=== PATIENT | male | born 1980 ===

== ENCOUNTER 2017-04-15 10:38 | Inpatient (IN) | payer MEDICAID, OTHER ==
[2017-04-15 11:37] LABS: BASO # 0.1 K/uL (0.0-0.2); BASO % 0.3 % (0.0-2.0); EOS % 0.1 % (0.0-4.0); LYMPH # 1.8 K/uL (1.0-4.3); LYMPH % 8.4 % (20.0-40.0); MEAN CELL VOLUME 74.8 fL (80.0-94.0); MEAN CORPUSCULAR HEMOGLOBIN 24.3 pg (27.0-31.0); MEAN CORPUSCULAR HGB CONC 32.4 g/dL (33.0-37.0); MEAN PLATELET VOLUME 6.8 fL (7.2-11.7); MONO # 1.5 K/uL (0.0-0.8); MONO % 7.1 % (0.0-10.0); PLATELET COUNT 443 K/uL (130-400)
[2017-04-15 11:47] LABS: CHLORIDE 101 mmol/L (98-107); SODIUM 137 mmol/L (132-148)
[2017-04-15 11:48] LABS: POTASSIUM 4.5 mmol/L (3.6-5.2)
[2017-04-15 11:50] LABS: ALB/GLOB RATIO 0.9 (1.0-2.1); ALKALINE PHOSPHATASE 71 U/L (38-126); ALT/SGPT 38 U/L (21-72); AST/SGOT 21 U/L (17-59); BILIRUBIN,TOTAL 0.8 mg/dL (0.2-1.3); BLOOD UREA NITROGEN 13 mg/dL (9-20); CALCIUM 8.9 mg/dl (8.6-10.4); CARBON DIOXIDE 26 mmol/L (22-30); GFR AFRICAN-AMERICAN > 60; GLUCOSE,RANDOM 94 mg/dL (75-110); TOTAL PROTEIN 7.7 g/dL (6.3-8.3)
[2017-04-15 11:51] LABS: ALCOHOL SERUM < 10 mg/dl (0-10)
[2017-04-15 11:56] LABS: RBC URINE < 1 /hpf (0-3); URINE BACTERIA OCC (<OCC); URINE BILIRUBIN NEGATIVE (NEGATIVE); URINE BLOOD NEGATIVE (NEGATIVE); URINE COLOR Yellow (YELLOW); URINE GLUCOSE (UA) NORMAL (Normal); URINE KETONE NEGATIVE (NEGATIVE); URINE LEUKOCYTE ESTERASE TRACE Leu/uL (Negative); URINE PROTEIN NEGATIVE (NEGATIVE)
[2017-04-15 11:57] LABS: NEUTROPHIL 84 % (50-75); TOTAL CELLS COUNTED 100
[2017-04-15 12:09] LABS: WBC URINE 25 /hpf (0-5)
--- NOTE | 2017-04-15 12:27 | C.PDOC ---
History Of Present Illness 36 y/o male presents to ED for evaluation of depression with suicidal ideation- has plan to hang himself. Pt also complains of right testicular pain and swelling for the last several days. Pt denies having unprotected sex, penile discharge or rash, fever, abdominal pain, injuries/trauma. Time Seen by Provider: 04/15/17 11:01 Chief Complaint (Nursing): Psychiatric Evaluation History Per: Patient History/Exam Limitations: no limitations Onset/Duration Of Symptoms: Days Current Symptoms Are (Timing): Still Present Modifying Factor(s): None Severity: Moderate Associated Symptoms: Depression, Suicidal Thoughts, Suicidal Plan Involuntary Hold By: Emergency Physician Additional History Per: Patient Past Medical History Reviewed: Historical Data, Nursing Documentation, Vital Signs Vital Signs: Last Vital Signs Temp 98.3 F 04/15/17 15:35 Pulse 74 04/15/17 15:35 Resp 17 04/15/17 16:00 BP 104/66 04/15/17 15:35 Pulse Ox 99 04/15/17 15:27 - Medical History PMH: Bipolar Disorder, Schizophrenia Family History: States: No Known Family Hx - Social History Hx Alcohol Use: Yes Hx Substance Use: Yes (last yesterday) - Immunization History Hx Tetanus Toxoid Vaccination: No Hx Influenza Vaccination: No Hx Pneumococcal Vaccination: No Review Of Systems Except As Marked, All Systems Reviewed And Found Negative. Constitutional: Negative for: Fever, Chills Cardiovascular: Negative for: Chest Pain, Palpitations Respiratory: Negative for: Shortness of Breath Gastrointestinal: Negative for: Nausea, Vomiting, Abdominal Pain Genitourinary: Positive for: Other (testicular pain and swelling). Negative for : Dysuria, Frequency, Hematuria, Penile Discharge, Rash, Penile Pain Skin: Negative for: Rash Neurological: Negative for: Headache, Dizziness Psych: Positive for: Depression, Suicidal ideation Physical Exam - Physical Exam Appears: Well, Non-toxic, No Acute Distress, Other (flat affect) Skin: Warm, Dry, No Rash Head: Normacephalic Eye(s): bilateral: Normal Inspection Oral Mucosa: Moist Neck: Supple Cardiovascular: Rhythm Regular Respiratory: Normal Breath Sounds, No Rales, No Rhonchi, No Wheezing Gastrointestinal/Abdominal: Normal Exam, Bowel Sounds, Soft, No Tenderness Back: No CVA Tenderness Male Genital: Testicular Tenderness (erythema, warmth, and tenderness to palpation of right testicle), Testicular Swelling (right), No Inguinal Swelling , No Other (no penile lesions or discharge) Extremity: Normal ROM Neurological/Psych: Oriented x3 ED Course And Treatment - Laboratory Results Result Diagrams: 04/15/17 15:07 04/15/17 11:34 O2 Sat by Pulse Oximetry: 100 (on RA) Pulse Ox Interpretation: Normal Progress Note: Blood work, UA, CXR, testicular ultrasoud ordered and reviewed. Patient given IV NS bolus, IV toradol for pain. US shows epididymitis/orchitis without abscess. Discussed patient with [employer] consultant urologist Dr. Sanchez, he recommends PO antibiotics (Ciprofloxacin) without further intervention at this time. Rocephin IM and Azithromycin PO given in ED to cover for possible chlamydia/gonorrhea. Recommend Ciprofloxacin 500mg PO BID x 10 days and then follow up with urology. 3:00pm- Patient medically cleared. 3:11pm- Patient accepted for psychiatric admission by Dr. Banks. Urology consult entered. - Physician Consult Information Physician Contacted: Marcel Sanchez Disposition - Disposition Disposition: HOSPITALIZED Disposition Time: 13:11 Condition: STABLE - Clinical Impression Clinical Impression: Depression, Epididymitis, Orchitis - Scribe Statement The provider has reviewed the documentation as recorded by the Scribe Inez Fritz All medical record entries made by the Scribe were at my direction and personally dictated by me. I have reviewed the chart and agree that the record accurately reflects my personal performance of the history, physical exam, medical decision making, and the department course for this patient. I have also personally directed, reviewed, and agree with the discharge instructions and disposition. Decision To Admit - Pt Status Changed To: Hospital Disposition Of: Inpatient - Admit Certification Admit to Inpatient:: After my assessment, the patient will require hospitalization for at least two midnights. This is because of the severity of symptoms shown, intensity of services needed, and/or the medical risk in this patient being treated as an outpatient. - InPatient: Physician Admission Certification: I certify that this patient requires 2 or more midnights of care for the following reason:: see notes - . Bed Request Type: Psychiatry Admitting Physician: Carlo Banks Patient Diagnosis: Depression, Epididymitis, Orchitis
[2017-04-15] MEDS ORDERED: Sodium Chloride 0.9% 1,000 ML IV ONE (12:36)
--- NOTE | 2017-04-15 12:42 | RAD ---
HISTORY: ELEVATED WHITE COUNT COMPARISON: None available. TECHNIQUE: Chest PA and lateral FINDINGS: LUNGS: No focal consolidation. Please note that chest x-ray has limited sensitivity for the detection of pulmonary masses. PLEURA: No significant pleural effusion identified. No definite pneumothorax . CARDIOVASCULAR: The cardiomediastinal silhouette appears within normal limits of size. OSSEOUS STRUCTURES: No acute osseous abnormality identified. VISUALIZED UPPER ABDOMEN: Unremarkable. OTHER FINDINGS: None. IMPRESSION: No focal consolidation, significant pleural effusion, or definite pneumothorax identified.
[2017-04-15] MEDS ORDERED: Sodium Chloride 0.9% 1,000 ML ONE (13:34)
--- NOTE | 2017-04-15 14:19 | US ---
HISTORY: TESTICULAR PAIN, SWELLING TECHNIQUE: Realtime sonography through the scrotum with color and doppler flow. COMPARISON: None Available. FINDINGS: RIGHT TESTICLE: Measures 4.9 x 3.0 x 3 point sick cm. Normal echotexture. Diffuse hypervascularity throughout the right testicle and the inferred grossly abnormal epididymis RIGHT EPIDIDYMIS: The right epididymis is grossly abnormal - especially the body and tail. These epididymal parts are diffusely heterogeneous and diffusely swollen/enlarged. Estimated right epididymal tail portion is 2.2 x 2.4 x 3.4 cm. A near phlegmonous like process involving this portion of the epididymis is suspect. Right epididymal head is more normal-appearing in its echogenicity measuring 1.1 x 2.1 by 2.4 cm. LEFT TESTICLE: Measures 4.0 x 2.0 x 3.4 cm. Normal echotexture and flow. LEFT EPIDIDYMIS: Epididymal head measures 0.8 x 1.3 x 1.2 cm. Grossly unremarkable head appearance with normal flow. In contrast to the grossly abnormal right epididymal tail, the inferior left epididymal tail region on these images- series 1, image 60 suggests 2 fairly similarly sized rounded foci. 1 is homogeneous and the other suggest a cluster of microcysts within it. Each of the left epididymal tail component is approximately 1 cm in size. HYDROCELE: A large markedly septated right hydrocele is present. A minimal non complicated appearing left hydrocele suggested VARICOCELE: None. OTHER FINDINGS: Few scrotal wall thickening especially the right scrotal sac IMPRESSION: Grossly abnormal right epididymal body and tail -diffuse phlegmonous right epididymitis with right complicated hydrocele and asymmetrical right scrotal skin thickening/edema present. No intratesticular abscess. Diffuse increased vascularity throughout the right testicle is consistent with a hyperemic right orchitis. No intratesticular abscess noted. Left epididymal tail mildly complex anatomy much milder for/less extensive focal epididymitis here is not excluded. Developmental variant of clustered epididymal tail microcysts is another. Close clinical follow-up with the treatment is recommended
[2017-04-15] MEDS ORDERED: cefTRIAXone (Rocephin) 250 mg Inj IM STA (14:45)
[2017-04-15 15:13] LABS: BASO % 0.2 % (0.0-2.0); EOS # 0.1 K/uL (0.0-0.7); EOS % 0.3 % (0.0-4.0); HEMATOCRIT 31.5 % (35.0-51.0); LYMPH # 2.4 K/uL (1.0-4.3); MEAN CELL VOLUME 74.8 fL (80.0-94.0); MEAN CORPUSCULAR HEMOGLOBIN 24.1 pg (27.0-31.0); MEAN CORPUSCULAR HGB CONC 32.3 g/dL (33.0-37.0); MEAN PLATELET VOLUME 6.8 fL (7.2-11.7); MONO # 1.1 K/uL (0.0-0.8); MONO % 6.1 % (0.0-10.0); RED CELL DISTRIBUTION WIDTH 14.8 % (11.5-14.5); WHITE BLOOD COUNT 18.5 K/uL (4.8-10.8)
--- NOTE | 2017-04-15 16:36 | PCM.BM ---
<Alexia Cavazosanta - Last Filed: 04/15/17 16:34> Treatment Plan Problems - Problems identified on initial assessmt Depression Date Initiated: 04/15/17 Time Initiated: 16:35 Assessment reference: NA Status: Active Suicidal Ideation Date Initiated: 04/15/17 Time Initiated: 16:35 Assessment reference: NA Status: Monitor Treatment assets and liabiliti Patient Assests: adapts well, cooperative, ADL independent, negotiates basic needs Patient Liabilities: physical pain, substance abuse - Milieu Protocol Maintain good personal hygiene: daily Encourage regular showers, daily Remind patient to perform daily oral care Maintain personal safety: every shift Educate patient to report safety concerns to staff, every shift Monitor environment for contraband/sharps Medication safety: Monitor for expected outcome, potential side effects: every shift, Assess barriers to learning: every shift, Assess readiness for medication education: every shift <Gisele Linares - Last Filed: 04/16/17 10:41> Family Contact Family involvement: Family/SO is involved Family contact: Patient declines to allow family contact at present - Goals for Treatment Patient goals for treatment: "I want to go back to [place]." Discharge/Continuing Care - Education Needs Education Needs: Patient Medication, Patient Coping Skills, Patient Community resources - Discharge Discharge Criteria: Tolerates medication w/o severe side effects, Free of Suicidal thoughts, No longer exhibiting s/s of withdrawal, Reduction of target symptoms Discharge to:: Home - Treatment Team Participation Discussed with Family/SO: No Was Patient/Family/SO present at Treatment Team Meeting: Yes <Carlo Banks - Last Filed: 04/16/17 10:49> - Diagnosis (1) Schizoaffective disorder, bipolar type Status: Acute Interventions: 04/16/17 10:48 * Assess/adjust medications daily and /or as needed * See patient on an individual basis 7x/week to assess status of hallucinations * Discuss risks, benefits, side effects and alternatives of medications * (2) Opioid use disorder, severe, dependence Status: Acute Interventions: 04/16/17 10:48 * Assess 7x/week regarding severity of withdrawal * Educate regarding risks, benefits, side effects and alternatives of medications * Use Motivational Interviewing for abstinence * Use CBT for relapse prevention * Medication management for withdrawal symptoms * Encourage medication assisted treatment *
--- NOTE | 2017-04-16 09:55 | PCM.PSYCH ---
Initial Psychiatric Evaluation - Initial Psychiatric Evaluation Type of Admission: Voluntary Legal Status: Capacity Chief Complaint (in patient's own words): I started hearing voices.' History of Present Illness and Precipitating Events: Patient is a 36 year old male with history of schizoaffective disorder and history of abusing heroin and cocaine and drinking was brought to ED by his mother as patient became increasingly depressed and made a suicidal ideation with a plan to hang himself. As per the patient he has history of schizophrenia paranoid type continuous. He was last discharged from the hospital in [place] almost 2 years ago. As per the patient he saw a psychiatrist in [place] almost a year ago. Since then he is been noncompliant with his medications. Patient reports a long history of abusing drugs. Patient reports he is using 15 bags of heroin and $200 of cocaine IV daily. Patient started using when he was 18 and has been using both heroin and cocaine for years. Patient last used yesterday. He reports drinking almost a liter of vodka 2 days ago. Patient reports that he started hearing voices telling him to harm himself. Yesterday patient became so depressed that he was in the process of attempting suicide by hanging when his mother walked in and intervened and escorted him to the hospital to get help. Patient reports depressed mood, feelings of hopelessness and helplessness, poor sleep and poor appetite. He also reports auditory hallucinations telling him to kill himself and persecutory delusions that he is being followed. He also reports at times anxiety and irritability but denies any panic attacks. Past medical history None reported Current Medications: Active Medications Generic Name Dose Route Start Last Admin Trade Name Freq PRN Reason Stop Dose Admin Al Hydrox/Mg Hydrox/Simethicone 30 ml 04/15/17 15:28 Maalox 30 Ml PO TID PRN Indigestion / Heartburn Ciprofloxacin 500 mg 04/15/17 18:00 04/16/17 09:04 Cipro PO 500 mg BID FESTUS Administration Clonidine HCl 0.1 mg 04/15/17 15:28 Catapres PO Q8 PRN COWS Score More or Equal to 5 Hydroxyzine HCl 25 mg 04/15/17 15:29 04/16/17 09:05 Atarax PO 25 mg Q6 PRN Administration Anxiety Loperamide HCl 2 mg 09/21/17 15:28 Imodium PO Q8 PRN Diarrhea Methadone HCl 10 mg 04/17/17 10:00 Methadone PO 04/19/17 09:59 DAILY FESTUS Taper Ondansetron HCl 4 mg 04/15/17 15:28 Zofran Tab PO Q8 PRN Nausea/Vomiting Pneumococcal Polyvalent Vaccine 0.5 ml 04/18/17 10:00 Pneumovax 23 Vaccine IM 04/18/17 10:01 .ONCE ONE Pseudoephedrine HCl 60 mg 04/15/17 15:28 Sudafed Tab PO QID PRN Nasal/Sinus Congestion Trazodone HCl 50 mg 04/15/17 22:00 04/15/17 21:12 Desyrel PO 50 mg HS FESTUS Administration Past Psychiatric History - Past Psychiatric History Previous Treatment History: Inpatient Pertinent Medical Hx (Current Medical&Sleep Prob, Allergies): Allergies Allergy/AdvReac Type Severity Reaction Status Date / Time No Known Allergies Allergy Verified 04/15/17 10:51 No Known Home Med 04/15/17 Review of Systems - Review of Systems All systems: reviewed and no additional remarkable complaints except - Psychiatric Psychiatric: Anxiety, Auditory Hallucinations, Hopelessness, Irritability, Paranoia, Suicidal Ideation Mental Status Examination - Personal Presentation Personal Presentation: Looks stated age - Affect Affect: Constricted, Depressed - Motor Activity Motor Activity: Calm - Reliability in Providing Information Reliability in Providing Information: Poor, due to alteration in thoughts - Speech Speech: Disorganized - Mood Mood: Depressed, Anxious - Formal Thought Process Formal Thought Process: Hallucinations, Delusions, Paranoia, Loosening of associations - Hallucinations/Delusions Hallucinations: Auditory Delusions: Persecution - Obsessions/Compulsions Obsessions: No Compulsions: No - Cognitive Functions Orientation: Person, Place, Situation, Time Sensorium: Alert Attention/Concentration: Attentive Abstract Thinking: Berkley Estimate of Intelligence: Below average Judgement: Imparied, as evidence by: Poor judgement, Imparied, as evidence by: Lack of insight into illness - Risk Risk: Suicidal, Withdrawal, Diminished functioning - Strength & Assets Inventory Strength & Assets Inventory: Family support DSM 5 DX - DSM 5 DSM 5 Diagnosis: Schizoaffective disorder bipolar type According use disorder severe Opiate use disorder severe Opiate Withdrawal Cocaine use disorder severe - Recommended/Plan of Treatment Treatment Recommendations and Plan of Treatment: Schizoaffective disorder bipolar type CBT Psychoeducation Supportive therapy, group therapy, individual therapy Seroquel 100 mg po QHS [place] 300 mg by mouth 3 times a day Alcohol use disorder severe CBT Psychoeducation Supportive therapy, individual therapy Use AL for abstinence Librium when necessary Folic acid/thiamine/multivitamin Opioid use disorder severe CBT Psychoeducation Supportive therapy, individual therapy Use AL for abstinence Opioid withdrawal CBT Psychoeducation Supportive therapy, individual therapy Clonidine when necessary Methadone taper Cocaine use disorder severe Monitor signs and symptoms Use AL for abstinence - Smoking Cessation Smoking Cessation Initiated: No
--- NOTE | 2017-04-16 13:28 | CP.PCM.CON ---
<SalesMonica wilsonSofi - Last Filed: 04/16/17 16:39> History of Present Illness - History of Present Illness History of Present Illness: 36 year old male with past medical history of substance abuse, bipolar disorder and depression medicine is being consulted for testicular pain. Patient states he has been having the testicular pain since Wednesday. When he went to urinate in the evening he noticed that his testicle was swollen. He denies trauma to his testicular area. He denies dyuria, hematuria, or penile discharge. He states his pain is sharp and radiates around his lower abdomen and lower back. The pain is currently a 10/10 and it is a 7/10 at its best. When he walks the pain is worse and when he is laying down the pain is at its best. He feels like has had a fever at home but did not quantify a temperature. Patient denies sexual activity for the past year and states he was tested for HIV 3 weeks ago and was negative. He states he has not been tested for STDs in a few years. He states this has never happened before. PMD: Denies Past Medical History: Bipolar disorder, depression, substance abuse disorder, 3 years ago patient states he was suicidal and was hospitalized in [place]. 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 Lives at home with mom. Drinks about 1L of Vodka every other day (denies history of seizures) for the past 15 years; Smokes 1/2 pack per day for the past 15 years. Heroin 15 bags - 3months. Was previously abstinent for 3 years prior. Cocaine 15 bags for the past 3 months. Was previously abstinent for 3 years. Review of Systems - Constitutional Constitutional: Fever. absent: Chills, Headache - Cardiovascular Cardiovascular: absent: Chest Pain, Dyspnea, Palpitations, Pedal Edema - Gastrointestinal Gastrointestinal: absent: Constipation, Diarrhea, Nausea, Vomiting - Genitourinary Genitourinary: Other (right testicular pain ). absent: Dysuria, Hematuria - Musculoskeletal Musculoskeletal: absent: Numbness, Tingling - Integumentary Integumentary: absent: Pruritus, Rash, Wounds - Neurological Neurological: absent: Headaches, Paresthesias, Tingling - Psychiatric Psychiatric: Depression Past Patient History - Infectious Disease Hx of Infectious Diseases: None - Past Social History Smoking Status: Heavy Smoker > 10 Cigarettes Daily - CARDIAC Hx Hypertension: No - PULMONARY Hx Tuberculosis: No - NEUROLOGICAL Hx Seizures: No - HEMATOLOGICAL/ONCOLOGICAL Hx Human Immunodeficiency Virus (HIV): No - GENITOURINARY/GYNECOLOGICAL Hx Sexually Transmitted Disorders: No - PSYCHIATRIC Hx Substance Use: Yes (last yesterday) - SURGICAL HISTORY Hx Surgeries: No - ANESTHESIA Hx Anesthesia: No Meds Allergies/Adverse Reactions: Allergies Allergy/AdvReac Type Severity Reaction Status Date / Time No Known Allergies Allergy Verified 04/15/17 10:51 - Medications Medications: Current Medications Al Hydrox/Mg Hydrox/Simethicone (Maalox 30 Ml) 30 ml PO TID PRN PRN Reason: Indigestion / Heartburn Ciprofloxacin (Cipro) 500 mg PO BID [facility] Last Admin: 04/16/17 09:04 Dose: 500 mg Clonidine HCl (Catapres) 0.1 mg PO Q8 PRN PRN Reason: COWS Score More or Equal to 5 Hydroxyzine HCl (Atarax) 25 mg PO Q6 PRN PRN Reason: Anxiety Last Admin: 04/16/17 09:05 Dose: 25 mg Ibuprofen (Motrin Tab) 800 mg PO Q8 PRN PRN Reason: Pain, moderate (4-7) Last Admin: 04/16/17 11:35 Dose: 800 mg [place] Carbonate ([place] Carbonate 300mg) 300 mg PO TID [facility] Last Admin: 04/16/17 13:24 Dose: 300 mg Loperamide HCl (Imodium) 2 mg PO Q8 PRN PRN Reason: Diarrhea Methadone HCl (Methadone) 10 mg PO DAILY [facility] PRN Reason: Taper Stop: 04/19/17 09:59 Ondansetron HCl (Zofran Tab) 4 mg PO Q8 PRN PRN Reason: Nausea/Vomiting Pneumococcal Polyvalent Vaccine (Pneumovax 23 Vaccine) 0.5 ml IM .ONCE ONE Stop: 04/18/17 10:01 Pseudoephedrine HCl (Sudafed Tab) 60 mg PO QID PRN PRN Reason: Nasal/Sinus Congestion Quetiapine Fumarate (Seroquel) 100 mg PO HS [facility] Trazodone HCl (Desyrel) 50 mg PO HS [facility] Last Admin: 04/15/17 21:12 Dose: 50 mg Physical Exam - Constitutional Appears: No Acute Distress - Head Exam Head Exam: ATRAUMATIC, NORMAL INSPECTION, NORMOCEPHALIC - Eye Exam Eye Exam: EOMI, Normal appearance, PERRL Pupil Exam: NORMAL ACCOMODATION - ENT Exam ENT Exam: Mucous Membranes Moist - Respiratory Exam Respiratory Exam: Clear to Auscultation Bilateral, NORMAL BREATHING PATTERN - Cardiovascular Exam Cardiovascular Exam: REGULAR RHYTHM, RRR, +S1, +S2 - GI/Abdominal Exam GI & Abdominal Exam: Normal Bowel Sounds, Soft. absent: Tenderness - Exam External exam: Swelling (right testicular swelling; right testicular tenderness ) - Extremities Exam Extremities exam: Positive for: normal inspection. Negative for: joint swelling , pedal edema, tenderness - Neurological Exam Neurological exam: Alert, Oriented x3 - Psychiatric Exam Psychiatric exam: Depressed - Skin Skin Exam: Normal Color, Warm Results - Vital Signs Recent Vital Signs: Last Vital Signs Temp 98.1 F 04/16/17 07:48 Pulse 66 04/16/17 07:48 Resp 20 04/16/17 07:48 BP 106/68 04/16/17 07:48 Pulse Ox 99 04/16/17 07:48 - Labs Result Diagrams: 04/15/17 15:07 04/15/17 11:34 Labs: Laboratory Results - last 24 hr 04/15/17 15:07 WBC 18.5 H RBC 4.21 L Hgb 10.2 L Hct 31.5 L MCV 74.8 L MCH 24.1 L MCHC 32.3 L RDW 14.8 H Plt Count 398 MPV 6.8 L Neut % (Auto) 80.4 H Lymph % (Auto) 13.0 L [place] % (Auto) 6.1 Eos % (Auto) 0.3 Baso % (Auto) 0.2 Neut # 14.9 H Lymph # 2.4 [place] # 1.1 H Eos # 0.1 Baso # 0.0 Assessment & Plan - Assessment and Plan (Free Text) Assessment: 1.) Epididymitis and Hydrocele - Right Testicular Swelling - Testicular Ultrasound: Grossly abnormal right epididymal body and tail - diffuse phlegmonous right epididymitis with right complicated hydrocele and asymmetrical right scrotal skin thickening/edema present. No intratesticular abscess. Diffuse increased vascularity throughout the right testicle is consistent with a hyperemic right orchitis. No intratesticular abscess noted. Left epididymal tail mildly complex anatomy much milder for less extensive focal epididymitis here is not excluded. Developmental variant of clustered epididymal tail microcysts is another. - Keep right testicle elevated when in bed. - Urine Culture: Negative - Blood Culture: No growth - preliminary - UA: WBC high * Ciprofloxacin 500mg PO BID started on 04/15 * Doxycycline 100mg PO Q12H started 04/16 * Ceftriaxone 250mg IM given 04/15; 04/16 * Order Placed for 04/17 * Toradol 30mg IM Q6 PRN for pain - f/u Urine GC/Chlamydia; RPR - f/u HIV and Hepatitis Panel 2.) Smoking Cessation - Nicotine Patch 3.) Substance Abuse - Heroin, Cocaine, and Alcohol - Managed and Monitored by Dr. Banks * Clonidine 0.1mg PO Q8 PRN * Hydroxyzine 25mg PO Q6 PRN * Trazodone 50mg PO HS * Methadone 10mg PO daily * [place] 300mg PO TID * Quetiapine 100mg PO HS Thank you for this consult. Case discussed with Dr. Jia Sales -[id number] <Jermaine Ro - Last Filed: 04/16/17 17:17> Meds - Medications Medications: Current Medications Al Hydrox/Mg Hydrox/Simethicone (Maalox 30 Ml) 30 ml PO TID PRN PRN Reason: Indigestion / Heartburn Ceftriaxone Sodium (Rocephin) 250 mg IM ONCE ONE Stop: 04/17/17 15:01 Ciprofloxacin (Cipro) 500 mg PO BID [facility] Last Admin: 04/16/17 17:04 Dose: 500 mg Clonidine HCl (Catapres) 0.1 mg PO Q8 PRN PRN Reason: COWS Score More or Equal to 5 Doxycycline Hyclate (Doryx) 100 mg PO Q12H [facility] Last Admin: 04/16/17 15:17 Dose: 100 mg Hydroxyzine HCl (Atarax) 25 mg PO Q6 PRN PRN Reason: Anxiety Last Admin: 04/16/17 09:05 Dose: 25 mg Ketorolac Tromethamine (Toradol) 30 mg IM Q6 PRN PRN Reason: Pain, moderate (4-7) Last Admin: 04/16/17 16:48 Dose: 30 mg [place] Carbonate ([place] Carbonate 300mg) 300 mg PO TID [facility] Last Admin: 04/16/17 17:04 Dose: 300 mg Loperamide HCl (Imodium) 2 mg PO Q8 PRN PRN Reason: Diarrhea Methadone HCl (Methadone) 10 mg PO DAILY [facility] PRN Reason: Taper Stop: 04/19/17 09:59 Nicotine (Nicoderm Cq) 1 patch TD DAILY [facility] Last Admin: 04/16/17 15:23 Dose: 1 patch Ondansetron HCl (Zofran Tab) 4 mg PO Q8 PRN PRN Reason: Nausea/Vomiting Pneumococcal Polyvalent Vaccine (Pneumovax 23 Vaccine) 0.5 ml IM .ONCE ONE Stop: 04/18/17 10:01 Pseudoephedrine HCl (Sudafed Tab) 60 mg PO QID PRN PRN Reason: Nasal/Sinus Congestion Quetiapine Fumarate (Seroquel) 100 mg PO HS [facility] Trazodone HCl (Desyrel) 50 mg PO HS [facility] Last Admin: 04/15/17 21:12 Dose: 50 mg Results - Vital Signs Recent Vital Signs: Last Vital Signs Temp 97.8 F 04/16/17 15:50 Pulse 76 04/16/17 15:50 Resp 20 04/16/17 15:50 BP 106/67 04/16/17 15:50 Pulse Ox 99 04/16/17 07:48 - Labs Result Diagrams: 04/15/17 15:07 04/15/17 11:34 Attending/Attestation - Attestation I have personally seen and examined this patient.: Yes I have fully participated in the care of the patient.: Yes I have reviewed all pertinent clinical information: Yes Notes (Text): 04/16/17 17:15 Medical Attending: Patient was seen and examined by me. Agree with the above note by the resident The patient was not in any acute distress when I came and examined him. He completed testicular U/S, suggestive of epididymitis. Will check GC/Chymydia, HIV, UA, UCulture, HIV, RPR For now elevate the scotum. IM Rocephin, PO Doxycycline thank you Jermaine Ro
[2017-04-16] MEDS ORDERED: cefTRIAXone (Rocephin) 250 mg Inj IM ONE (15:00)
[2017-04-17 07:20] LABS: ALB/GLOB RATIO 0.9 (1.0-2.1); ALKALINE PHOSPHATASE 56 U/L (38-126); ALT/SGPT 45 U/L (21-72); AST/SGOT 31 U/L (17-59); BILIRUBIN,TOTAL 0.1 mg/dL (0.2-1.3); BLOOD UREA NITROGEN 20 mg/dL (9-20); CALCIUM 9.1 mg/dl (8.6-10.4); CARBON DIOXIDE 25 mmol/L (22-30); CHLORIDE 108 mmol/L (98-107); GFR AFRICAN-AMERICAN > 60; GLUCOSE,RANDOM 81 mg/dL (75-110); POTASSIUM 4.7 mmol/L (3.6-5.2); SODIUM 141 mmol/L (132-148); TOTAL PROTEIN 6.3 g/dL (6.3-8.3)
[2017-04-17 07:32] LABS: EOS # 0.4 K/uL (0.0-0.7); LYMPH # 2.4 K/uL (1.0-4.3); MEAN PLATELET VOLUME 7.4 fL (7.2-11.7); RED CELL DISTRIBUTION WIDTH 15.1 % (11.5-14.5)
[2017-04-17 07:53] LABS: BASO # 0.1 K/uL (0.0-0.2); BASO % 0.8 % (0.0-2.0); EOS % 4.6 % (0.0-4.0); HEMATOCRIT 34.4 % (35.0-51.0); LYMPH % 29.2 % (20.0-40.0); MEAN CORPUSCULAR HGB CONC 32.9 g/dL (33.0-37.0); MONO # 0.8 K/uL (0.0-0.8); MONO % 10.2 % (0.0-10.0)
[2017-04-17 07:55] LABS: WHITE BLOOD COUNT 8.2 K/uL (4.8-10.8)
--- NOTE | 2017-04-17 12:54 | CP.PCM.PN ---
<Lois Fraire - Last Filed: 04/17/17 12:51> Subjective - Date & Time of Evaluation Date of Evaluation: 04/17/17 Time of Evaluation: 12:51 - Subjective Subjective: Patient seen and examine at beside. Patint doing well today but is complaining of diarrhea since yesterday. Patient says he had 2 watery BMs yeaterday and 2 this morning. Patient also admits to some sharp midsternal pain in his chest when he takes a deep breath that he had yesterday but is no longer having this pain today. Patient feels a little nauseous but has not been vomiting and is tolerating his diet. He denies fever, chills, SOB, abdominal pain, leg pain, and swelling. Objective - Vital Signs/Intake and Output Vital Signs (last 24 hours): Temp Pulse Resp BP Pulse Ox 98.1 F 70 19 102/67 99 04/17/17 07:38 04/17/17 07:38 04/17/17 07:38 04/17/17 07:38 04/16/17 07:48 - Medications Medications: Current Medications Al Hydrox/Mg Hydrox/Simethicone (Maalox 30 Ml) 30 ml PO TID PRN PRN Reason: Indigestion / Heartburn Ceftriaxone Sodium (Rocephin) 250 mg IM ONCE ONE Stop: 04/17/17 15:01 Chlordiazepoxide (Librium) 25 mg PO Q6 PRN PRN Reason: Symptoms of alcohol withdrawl Ciprofloxacin (Cipro) 500 mg PO BID [facility] Last Admin: 04/17/17 09:06 Dose: 500 mg Clonidine HCl (Catapres) 0.1 mg PO Q8 PRN PRN Reason: COWS Score More or Equal to 5 Doxycycline Hyclate (Doryx) 100 mg PO Q12H [facility] Hydroxyzine HCl (Atarax) 25 mg PO Q6 PRN PRN Reason: Anxiety Last Admin: 04/17/17 09:05 Dose: 25 mg Ketorolac Tromethamine (Toradol) 30 mg IM Q6 PRN PRN Reason: Pain, moderate (4-7) Last Admin: 04/17/17 10:49 Dose: 30 mg [place] Carbonate ([place] Carbonate 300mg) 300 mg PO TID [facility] Last Admin: 04/17/17 09:05 Dose: 300 mg Loperamide HCl (Imodium) 2 mg PO Q8 PRN PRN Reason: Diarrhea Methadone HCl (Methadone) 10 mg PO DAILY [facility] PRN Reason: Taper Stop: 04/19/17 09:59 Last Admin: 04/17/17 09:06 Dose: 10 mg Nicotine (Nicoderm Cq) 1 patch TD DAILY [facility] Last Admin: 04/17/17 09:05 Dose: 1 patch Ondansetron HCl (Zofran Tab) 4 mg PO Q8 PRN PRN Reason: Nausea/Vomiting Pneumococcal Polyvalent Vaccine (Pneumovax 23 Vaccine) 0.5 ml IM .ONCE ONE Stop: 04/18/17 10:01 Pseudoephedrine HCl (Sudafed Tab) 60 mg PO QID PRN PRN Reason: Nasal/Sinus Congestion Quetiapine Fumarate (Seroquel) 100 mg PO HS [facility] Last Admin: 04/16/17 21:12 Dose: 100 mg Trazodone HCl (Desyrel) 50 mg PO [facility] Last Admin: 04/16/17 21:12 Dose: 50 mg - Labs Labs: 04/17/17 06:58 04/17/17 06:58 - Constitutional Appears: Non-toxic, No Acute Distress - Head Exam Head Exam: NORMAL INSPECTION - Eye Exam Eye Exam: EOMI, Normal appearance - ENT Exam ENT Exam: Mucous Membranes Moist - Respiratory Exam Respiratory Exam: Clear to Ausculation Bilateral, NORMAL BREATHING PATTERN. absent: Rales, Rhonchi, Wheezes - Cardiovascular Exam Cardiovascular Exam: REGULAR RHYTHM, +S1, +S2. absent: Bradycardia, Tachycardia , Murmur - GI/Abdominal Exam GI & Abdominal Exam: Soft, Normal Bowel Sounds. absent: Distended, Tenderness - Exam Exam: Scrotal Swelling (right), Testicular Tenderness (anterior superior right testical ) - Extremities Exam Extremities Exam: Normal Inspection. absent: Pedal Edema, Tenderness - Neurological Exam Neurological Exam: Alert, Awake - Psychiatric Exam Psychiatric exam: Normal Mood - Skin Skin Exam: Dry, Intact, Normal Color, Warm Assessment and Plan - Assessment and Plan (Free Text) Assessment: 1.) Epididymitis and Hydrocele - Right Testicular Swelling - Testicular Ultrasound: Grossly abnormal right epididymal body and tail - diffuse phlegmonous right epididymitis with right complicated hydrocele and asymmetrical right scrotal skin thickening/edema present. No intratesticular abscess. Diffuse increased vascularity throughout the right testicle is consistent with a hyperemic right orchitis. No intratesticular abscess noted. Left epididymal tail mildly complex anatomy much milder for less extensive focal epididymitis here is not excluded. Developmental variant of clustered epididymal tail microcysts is another. - Keep right testicle elevated when in bed. - Urine Culture: Negative - Blood Culture: No growth x24h - UA: WBC high * Ciprofloxacin 500mg PO BID started on 04/15 * Doxycycline 100mg PO Q12H started 04/16 * Ceftriaxone 250mg IM given 04/15; 04/16; 04/17 * Toradol 30mg IM Q6 PRN for pain - RPR negative - HIV negative - f/u Urine GC/Chlamydia 2.) Hepatitis C - Positive on hepatitis panel (04/16) - Will discuss results with patient 3.)Smoking Cessation - Nicotine Patch 4.) Substance Abuse - Heroin, Cocaine, and Alcohol - Managed and Monitored by Dr. Banks * Clonidine 0.1mg PO Q8 PRN * Hydroxyzine 25mg PO Q6 PRN * Trazodone 50mg PO HS * Methadone 10mg PO daily * [place] 300mg PO TID * Quetiapine 100mg PO HS <Ro,Peter H - Last Filed: 04/17/17 13:54> Objective - Vital Signs/Intake and Output Vital Signs (last 24 hours): Temp Pulse Resp BP Pulse Ox 98.1 F 70 19 102/67 99 04/17/17 07:38 04/17/17 07:38 04/17/17 07:38 04/17/17 07:38 04/16/17 07:48 - Medications Medications: Current Medications Al Hydrox/Mg Hydrox/Simethicone (Maalox 30 Ml) 30 ml PO TID PRN PRN Reason: Indigestion / Heartburn Ceftriaxone Sodium (Rocephin) 250 mg IM ONCE ONE Stop: 04/17/17 15:01 Chlordiazepoxide (Librium) 25 mg PO Q6 PRN PRN Reason: Symptoms of alcohol withdrawl Ciprofloxacin (Cipro) 500 mg PO BID [facility] Last Admin: 04/17/17 09:06 Dose: 500 mg Clonidine HCl (Catapres) 0.1 mg PO Q8 PRN PRN Reason: COWS Score More or Equal to 5 Doxycycline Hyclate (Doryx) 100 mg PO Q12H [facility] Hydroxyzine HCl (Atarax) 25 mg PO Q6 PRN PRN Reason: Anxiety Last Admin: 04/17/17 09:05 Dose: 25 mg Ketorolac Tromethamine (Toradol) 30 mg IM Q6 PRN PRN Reason: Pain, moderate (4-7) Last Admin: 04/17/17 10:49 Dose: 30 mg [place] Carbonate ([place] Carbonate 300mg) 300 mg PO TID [facility] Last Admin: 04/17/17 13:08 Dose: 300 mg Loperamide HCl (Imodium) 2 mg PO Q8 PRN PRN Reason: Diarrhea Methadone HCl (Methadone) 10 mg PO DAILY [facility] PRN Reason: Taper Stop: 04/19/17 09:59 Last Admin: 04/17/17 09:06 Dose: 10 mg Nicotine (Nicoderm Cq) 1 patch TD DAILY [facility] Last Admin: 04/17/17 09:05 Dose: 1 patch Ondansetron HCl (Zofran Tab) 4 mg PO Q8 PRN PRN Reason: Nausea/Vomiting Pneumococcal Polyvalent Vaccine (Pneumovax 23 Vaccine) 0.5 ml IM .ONCE ONE Stop: 04/18/17 10:01 Pseudoephedrine HCl (Sudafed Tab) 60 mg PO QID PRN PRN Reason: Nasal/Sinus Congestion Quetiapine Fumarate (Seroquel) 100 mg PO [facility] Last Admin: 04/16/17 21:12 Dose: 100 mg Trazodone HCl (Desyrel) 50 mg PO [facility] Last Admin: 04/16/17 21:12 Dose: 50 mg - Labs Labs: 04/17/17 06:58 04/17/17 06:58 Attending/Attestation - Attestation I have personally seen and examined this patient.: Yes I have fully participated in the care of the patient.: Yes I have reviewed all pertinent clinical information, including history, physical exam and plan: Yes Notes (Text): 04/17/17 13:52 Medical attending: Patient was seen and examined by me, agrees the above note by medical tech. The patient was sleeping when we entered the room. He was not in any acute distress when we saw him. He says that he feels that he has less pain today. His review of blood work showed that his blood cell count has improved substantially. As mentioned previously the patient is on IM Rocephin as well PO doxycycline and also PO Cipro. At this time were still currently pending further STD information to return. I discussed with the patient the results with hepatitis panel and the patient states that he is aware that he does have hepatitis C for about 6 years now. At some point in the future I explained to him that he's given need to follow-up to get basic lab work checked Thank you very much, Jermaine Ro
[2017-04-17] MEDS ORDERED: cefTRIAXone (Rocephin) 250 mg Inj IM ONE (15:00)
--- NOTE | 2017-04-17 19:14 | PCM.PYCHPN ---
Psychiatric Progress Note - Psychiatric Progress Note Patient seen today, length of contact: 15 minutes Patient Chief Complaint: I still hear voices telling me bad things. Problems Identified/Issues Discussed: Patient seen. Chart reviewed. Case discussed with the staff. Issues related to illness and treatment were discussed with the patient. Reported compliant with treatment with no adverse affects. Tolerating treatment very well. Reported still hearing voices, telling him bad things. Reported he was taking Seroquel 300 mg in the past. We will increase the dose gradually. Medicine is on the case for his swelling the groin. At the time of evaluation, patient was awake alert oriented 3, had no delusions , no auditory or visual hallucinations, no suicidal ideations or homicidal ideations. Medical Problems: None reported Diagnostic Results: Reviewed DSM 5 Symptoms Update: Some improvement with treatment Medication Change: Yes (Dose of Seroquel increased to 200 mg at bedtime) Medical Record Reviewed: Yes Consults ordered or reviewed: Reviewed Mental Status Examination - Cognitive Function Orientation: Person, Place, Situation, Time Memory: Intact Attention: WNL Concentration: WNL Association: WN Fund of Knowledge: [facility] Decription of patient's judgement and insights: Fair - Mood Mood: Depressed - Affect Affect: Depressed - Speech Speech: Appropriate - Formal Thought Process Formal Thought Process: Hallucinations - Suicidal Ideation Suicidal Ideation: No - Homicidal Ideation Homicidal Ideation: No Goal/Treatment Plan - Goal/Treatment Plan Need for Continued Stay: Remain at risks for inpatient hospitalization, Discharge may exacerbated symptoms, Severe functional impairment Progress Toward Problem(s) and Goals/Treatment Plan: Patient education Supportive therapy Continue treatment as before with increased dose of Seroquel Estimated Date of D/C: 04/24/17 - Smoking Cessation Smoking Cessation Initiated: Yes
[2017-04-18 08:27] LABS: CHLORIDE 104 mmol/L (98-107); POTASSIUM 4.7 mmol/L (3.6-5.2); SODIUM 144 mmol/L (132-148)
[2017-04-18 08:29] LABS: BILIRUBIN,TOTAL 0.2 mg/dL (0.2-1.3); GFR AFRICAN-AMERICAN > 60
[2017-04-18 08:30] LABS: ALB/GLOB RATIO 0.9 (1.0-2.1); ALKALINE PHOSPHATASE 64 U/L (38-126); ALT/SGPT 53 U/L (21-72); AST/SGOT 41 U/L (17-59); BLOOD UREA NITROGEN 19 mg/dL (9-20); CARBON DIOXIDE 28 mmol/L (22-30); GLUCOSE,RANDOM 76 mg/dL (75-110); PHOSPHOROUS 4.6 mg/dL (2.5-4.5); TOTAL PROTEIN 7.2 g/dL (6.3-8.3)
[2017-04-18 08:31] LABS: CALCIUM 9.4 mg/dl (8.6-10.4); MAGNESIUM 1.9 mg/dL (1.6-2.3)
[2017-04-18 08:36] LABS: BASO # 0.1 K/uL (0.0-0.2); BASO % 0.6 % (0.0-2.0); EOS # 0.3 K/uL (0.0-0.7); EOS % 3.8 % (0.0-4.0); HEMATOCRIT 37.3 % (35.0-51.0); LYMPH # 2.3 K/uL (1.0-4.3); LYMPH % 25.4 % (20.0-40.0); MEAN CELL VOLUME 76.2 fL (80.0-94.0); MEAN CORPUSCULAR HEMOGLOBIN 24.7 pg (27.0-31.0); MEAN CORPUSCULAR HGB CONC 32.3 g/dL (33.0-37.0); MEAN PLATELET VOLUME 7.1 fL (7.2-11.7); MONO # 0.7 K/uL (0.0-0.8); MONO % 8.1 % (0.0-10.0); RED CELL DISTRIBUTION WIDTH 15.1 % (11.5-14.5)
[2017-04-18] MEDS ORDERED: Pneumococcal 23-Valent Vaccine IM ONE (10:00)
--- NOTE | 2017-04-18 10:28 | CP.PCM.PN ---
<Lois Fraire - Last Filed: 04/18/17 13:23> Subjective - Date & Time of Evaluation Date of Evaluation: 04/18/17 Time of Evaluation: 10:26 - Subjective Subjective: Patient seen and examined at bedside. Patient doing well today but still complaining of some diarrhea. Patient says he had diarrhea 4 times yesterday. Patient is still feeling nauseous as well but denies vomiting. He says the swelling and pain in his right testicle has not changed. Patient denies fever, chills, chest pain, SOB, abdominal pain, leg pain, and leg swelling. Objective - Vital Signs/Intake and Output Vital Signs (last 24 hours): Temp Pulse Resp BP Pulse Ox 97.5 F L 58 L 20 99/63 L 99 04/18/17 06:48 04/18/17 06:48 04/18/17 06:48 04/18/17 06:48 04/16/17 07:48 - Medications Medications: Current Medications Al Hydrox/Mg Hydrox/Simethicone (Maalox 30 Ml) 30 ml PO TID PRN PRN Reason: Indigestion / Heartburn Chlordiazepoxide (Librium) 25 mg PO Q6 PRN PRN Reason: Symptoms of alcohol withdrawl Ciprofloxacin (Cipro) 500 mg PO BID [facility] Last Admin: 04/18/17 09:00 Dose: 500 mg Clonidine HCl (Catapres) 0.1 mg PO Q8 PRN PRN Reason: COWS Score More or Equal to 5 Doxycycline Hyclate (Doryx) 100 mg PO Q12H [facility] Last Admin: 04/18/17 06:13 Dose: 100 mg Hydroxyzine HCl (Atarax) 25 mg PO Q6 PRN PRN Reason: Anxiety Last Admin: 04/17/17 09:05 Dose: 25 mg Ketorolac Tromethamine (Toradol) 30 mg IM Q6 PRN PRN Reason: Pain, moderate (4-7) Last Admin: 04/17/17 10:49 Dose: 30 mg Fruita Carbonate (Fruita Carbonate 300mg) 300 mg PO TID [facility] Last Admin: 04/18/17 09:00 Dose: 300 mg Loperamide HCl (Imodium) 2 mg PO Q8 PRN PRN Reason: Diarrhea Methadone HCl (Methadone) 5 mg PO DAILY [facility] PRN Reason: Taper Stop: 04/19/17 09:59 Last Admin: 04/18/17 09:00 Dose: 5 mg Nicotine (Nicoderm Cq) 1 patch TD DAILY [facility] Last Admin: 04/18/17 09:00 Dose: 1 patch Ondansetron HCl (Zofran Tab) 4 mg PO Q8 PRN PRN Reason: Nausea/Vomiting Pseudoephedrine HCl (Sudafed Tab) 60 mg PO QID PRN PRN Reason: Nasal/Sinus Congestion Quetiapine Fumarate (Seroquel) 200 mg PO HS [facility] Last Admin: 04/17/17 21:23 Dose: 200 mg Trazodone HCl (Desyrel) 50 mg PO HS [facility] Last Admin: 04/17/17 21:23 Dose: 50 mg - Labs Labs: 04/18/17 08:08 04/18/17 08:08 - Additional Findings Additional findings: - Constitutional Appears: Non-toxic, No Acute Distress - Head Exam Head Exam: NORMAL INSPECTION - Eye Exam Eye Exam: EOMI, Normal appearance - ENT Exam ENT Exam: Mucous Membranes Moist - Respiratory Exam Respiratory Exam: Clear to Ausculation Bilateral, NORMAL BREATHING PATTERN. absent: Rales, Rhonchi, Wheezes - Cardiovascular Exam Cardiovascular Exam: REGULAR RHYTHM, +S1, +S2. absent: Bradycardia, Tachycardia , Murmur - GI/Abdominal Exam GI & Abdominal Exam: Soft, Normal Bowel Sounds. absent: Distended, Tenderness - Exam Exam: Scrotal Swelling (right), Testicular Tenderness (anterior superior right testical ) - Extremities Exam Extremities Exam: Normal Inspection. absent: Pedal Edema, Tenderness - Neurological Exam Neurological Exam: Alert, Awake - Psychiatric Exam Psychiatric exam: Normal Mood - Skin Skin Exam: Dry, Intact, Normal Color, Warm Assessment and Plan - Assessment and Plan (Free Text) Assessment: 1.) Epididymitis and Hydrocele - Right Testicular Swelling - Testicular Ultrasound: Grossly abnormal right epididymal body and tail - diffuse phlegmonous right epididymitis with right complicated hydrocele and asymmetrical right scrotal skin thickening/edema present. No intratesticular abscess. Diffuse increased vascularity throughout the right testicle is consistent with a hyperemic right orchitis. No intratesticular abscess noted. Left epididymal tail mildly complex anatomy much milder for less extensive focal epididymitis here is not excluded. Developmental variant of clustered epididymal tail microcysts is another. - Keep right testicle elevated when in bed. - Urine Culture: Negative - Blood Culture: No growth x48h - UA: WBC high * Ciprofloxacin 500mg PO BID started on 04/15 * Doxycycline 100mg PO Q12H started 04/16 * Ceftriaxone 250mg IM given 04/15; 04/16; 04/17; 04/18 * Toradol 30mg IM Q6 PRN for pain - RPR negative - HIV negative - f/u Urine GC/Chlamydia 2.) Hepatitis C - Positive on hepatitis panel (04/16) - Patient is aware and was first diagnosed 6 years 3.)Smoking Cessation - Nicotine Patch 4.) Substance Abuse - Heroin, Cocaine, and Alcohol - Managed and Monitored by Dr. Banks * Clonidine 0.1mg PO Q8 PRN * Hydroxyzine 25mg PO Q6 PRN * Trazodone 50mg PO HS * Methadone 10mg PO daily * Fruita 300mg PO TID * Quetiapine 100mg PO HS Disposition: Patient's leukocytosis has resolved and blood/urine cultures negative to date. Will sign off per Dr. Ro. Please reconsult as needed. <Jermaine Ro - Last Filed: 04/18/17 13:47> Objective - Vital Signs/Intake and Output Vital Signs (last 24 hours): Temp Pulse Resp BP Pulse Ox 97.5 F L 58 L 20 99/63 L 99 04/18/17 06:48 04/18/17 06:48 04/18/17 06:48 04/18/17 06:48 04/16/17 07:48 - Medications Medications: Current Medications Al Hydrox/Mg Hydrox/Simethicone (Maalox 30 Ml) 30 ml PO TID PRN PRN Reason: Indigestion / Heartburn Ceftriaxone Sodium (Rocephin) 250 mg IM ONCE ONE Stop: 04/18/17 15:01 Chlordiazepoxide (Librium) 25 mg PO Q6 PRN PRN Reason: Symptoms of alcohol withdrawl Ciprofloxacin (Cipro) 500 mg PO BID [facility] Last Admin: 04/18/17 09:00 Dose: 500 mg Clonidine HCl (Catapres) 0.1 mg PO Q8 PRN PRN Reason: COWS Score More or Equal to 5 Doxycycline Hyclate (Doryx) 100 mg PO Q12H [facility] Last Admin: 04/18/17 06:13 Dose: 100 mg Hydroxyzine HCl (Atarax) 25 mg PO Q6 PRN PRN Reason: Anxiety Last Admin: 04/18/17 11:28 Dose: 25 mg Ketorolac Tromethamine (Toradol) 30 mg IM Q6 PRN PRN Reason: Pain, moderate (4-7) Last Admin: 04/17/17 10:49 Dose: 30 mg Fruita Carbonate (Fruita Carbonate 300mg) 300 mg PO TID [facility] Last Admin: 04/18/17 13:14 Dose: 300 mg Loperamide HCl (Imodium) 2 mg PO Q8 PRN PRN Reason: Diarrhea Methadone HCl (Methadone) 5 mg PO DAILY [facility] PRN Reason: Taper Stop: 04/19/17 09:59 Last Admin: 04/18/17 09:00 Dose: 5 mg Nicotine (Nicoderm Cq) 1 patch TD DAILY [facility] Last Admin: 04/18/17 09:00 Dose: 1 patch Ondansetron HCl (Zofran Tab) 4 mg PO Q8 PRN PRN Reason: Nausea/Vomiting Pseudoephedrine HCl (Sudafed Tab) 60 mg PO QID PRN PRN Reason: Nasal/Sinus Congestion Quetiapine Fumarate (Seroquel) 200 mg PO HS [facility] Last Admin: 04/17/17 21:23 Dose: 200 mg Trazodone HCl (Desyrel) 50 mg PO [facility] Last Admin: 04/17/17 21:23 Dose: 50 mg - Labs Labs: 04/18/17 08:08 04/18/17 08:08 Attending/Attestation - Attestation I have personally seen and examined this patient.: Yes I have fully participated in the care of the patient.: Yes I have reviewed all pertinent clinical information, including history, physical exam and plan: Yes Notes (Text): Medical consult: Patient was seen and examined by me, agrees the above note by biomedical equipment support specialist. When patient first came in he had a very elevated white blood cell count since then white blood cell count has declined every single day and is now within normal limits. He does have any fevers. And does not report any difficulty urinating. He says that the right side is pyrotechnics press tender, particularly with palpation whenever he tries to walk. This being said when I came and saw him today he looks very comfortable and was not in any acute distress. At this time were to continue with the Rocephin as well as the by mouth doxycycline We also had a discussion with regards to the patient's hepatitis C status, and the patient explained that he's had hepatitis C for a very long time now and that he's well aware Thank you very much Jermaine Ro
[2017-04-18] MEDS ORDERED: cefTRIAXone (Rocephin) 250 mg Inj IM ONE (15:00)
--- NOTE | 2017-04-18 15:56 | PCM.PYCHPN ---
Psychiatric Progress Note - Psychiatric Progress Note Patient seen today, length of contact: 15 minutes Patient Chief Complaint: I still hear voices telling me bad things. Also cannot sleep. Problems Identified/Issues Discussed: Patient seen. Chart reviewed. Case discussed with the staff. Issues related to illness and treatment were discussed with the patient. Reported compliant with treatment with no adverse affects. Tolerating treatment very well. Reported still hearing voices, telling him bad things. Will increase the dose of Seroquel to 300 mg at bedtime. Medicine is on the case for his swelling the groin. At the time of evaluation, patient was awake alert oriented 3, had no delusions , no auditory or visual hallucinations, no suicidal ideations or homicidal ideations. Medical Problems: None reported Diagnostic Results: Reviewed DSM 5 Symptoms Update: Improving with treatment Medication Change: Yes (Dose of Seroquel increased to 300 mg at bedtime) Medical Record Reviewed: Yes Consults ordered or reviewed: Reviewed Mental Status Examination - Cognitive Function Orientation: Person, Place, Situation, Time Memory: Intact Attention: WNL Concentration: WNL Association: WN Fund of Knowledge: [facility] Decription of patient's judgement and insights: Fair - Mood Mood: Depressed - Affect Affect: Depressed - Speech Speech: Appropriate - Formal Thought Process Formal Thought Process: Hallucinations - Suicidal Ideation Suicidal Ideation: No - Homicidal Ideation Homicidal Ideation: No Goal/Treatment Plan - Goal/Treatment Plan Need for Continued Stay: Remain at risks for inpatient hospitalization, Discharge may exacerbated symptoms, Severe functional impairment Progress Toward Problem(s) and Goals/Treatment Plan: Patient education Supportive therapy Dose of Seroquel will increase to 300 mg from 200 mg at bedtime. Continue rest of the treatment as before with increased dose of Seroquel Estimated Date of D/C: 04/24/17 - Smoking Cessation Smoking Cessation Initiated: Yes
[2017-04-19 07:26] LABS: BASO % 0.6 % (0.0-2.0); EOS # 0.4 K/uL (0.0-0.7); EOS % 5.3 % (0.0-4.0); HEMATOCRIT 34.2 % (35.0-51.0); LYMPH # 2.5 K/uL (1.0-4.3); LYMPH % 32.4 % (20.0-40.0); MEAN CELL VOLUME 75.7 fL (80.0-94.0); MEAN CORPUSCULAR HEMOGLOBIN 24.5 pg (27.0-31.0); MEAN CORPUSCULAR HGB CONC 32.4 g/dL (33.0-37.0); MEAN PLATELET VOLUME 7.2 fL (7.2-11.7); MONO # 0.7 K/uL (0.0-0.8); MONO % 9.5 % (0.0-10.0); RED CELL DISTRIBUTION WIDTH 15.1 % (11.5-14.5); WHITE BLOOD COUNT 7.8 K/uL (4.8-10.8)
[2017-04-19 07:46] LABS: CHLORIDE 108 mmol/L (98-107); SODIUM 142 mmol/L (132-148)
[2017-04-19 07:47] LABS: POTASSIUM 4.3 mmol/L (3.6-5.2)
[2017-04-19 07:49] LABS: ALB/GLOB RATIO 0.9 (1.0-2.1); ALKALINE PHOSPHATASE 62 U/L (38-126); ALT/SGPT 66 U/L (21-72); AST/SGOT 42 U/L (17-59); BILIRUBIN,TOTAL 0.3 mg/dL (0.2-1.3); BLOOD UREA NITROGEN 26 mg/dL (9-20); CALCIUM 9.2 mg/dl (8.6-10.4); CARBON DIOXIDE 26 mmol/L (22-30); GFR AFRICAN-AMERICAN > 60; GLUCOSE,RANDOM 81 mg/dL (75-110); PHOSPHOROUS 4.7 mg/dL (2.5-4.5); TOTAL PROTEIN 6.9 g/dL (6.3-8.3)
[2017-04-19 07:50] LABS: MAGNESIUM 2.1 mg/dL (1.6-2.3)
--- NOTE | 2017-04-19 22:02 | PCM.PYCHPN ---
Psychiatric Progress Note - Psychiatric Progress Note Patient seen today, length of contact: 15 minutes Patient Chief Complaint: "I'm hearing voices" Problems Identified/Issues Discussed: The pt is seen, chart reviewed, case discussed with staff. Support given, CBT and LA used briefly No new symptoms reported, other than the same AH He is improving slowly and needs more time No SEs from medications, risks discussed. After care discussed Seroquel increased Medication Change: Yes (increase seroquel again) Medical Record Reviewed: Yes Mental Status Examination - Cognitive Function Orientation: Person, Place, Situation, Time Memory: Intact Attention: WNL Concentration: WNL Association: WNL Fund of Knowledge: WNL - Mood Mood: Depressed - Affect Affect: Depressed - Speech Speech: Appropriate - Formal Thought Process Formal Thought Process: Hallucinations - Suicidal Ideation Suicidal Ideation: No - Homicidal Ideation Homicidal Ideation: No Goal/Treatment Plan - Goal/Treatment Plan Need for Continued Stay: Remain at risks for inpatient hospitalization, Discharge may exacerbated symptoms, Severe functional impairment Progress Toward Problem(s) and Goals/Treatment Plan: Continue medications, inc. seroquel Support and psychoeducation daily Attend groups and activities daily After care planning by GIORGI to an [facility] Estimated Date of D/C: 04/24/17
--- NOTE | 2017-04-20 13:48 | PCM.PYCHPN ---
Psychiatric Progress Note - Psychiatric Progress Note Patient seen today, length of contact: 15 minutes Patient Chief Complaint: I still hear voices. Problems Identified/Issues Discussed: Patient seen. Chart reviewed. Case discussed with the staff. Issues related to illness and treatment were discussed with the patient. Reported compliant with treatment with no adverse affects. Tolerating treatment very well. Reported still hearing voices. Dose of Seroquel was increased yesterday. Patient is still asking for more Seroquel. Patient is improving slowly. Needs more time for stabilization. Medicine is on the case for his swelling the groin. Improving. At the time of evaluation, patient was awake alert oriented 3, had no delusions , no auditory or visual hallucinations, no suicidal ideations or homicidal ideations. Medical Problems: None reported Diagnostic Results: Reviewed Medication Change: No Medical Record Reviewed: Yes Consults ordered or reviewed: Reviewed Mental Status Examination - Cognitive Function Orientation: Person, Place, Situation, Time Memory: Intact Attention: WNL Concentration: WNL Association: WNL Fund of Knowledge: [facility] Decription of patient's judgement and insights: Fair - Mood Mood: Depressed - Affect Affect: Other (Appears neutral) - Speech Speech: Appropriate - Formal Thought Process Formal Thought Process: Hallucinations - Suicidal Ideation Suicidal Ideation: No - Homicidal Ideation Homicidal Ideation: No Goal/Treatment Plan - Goal/Treatment Plan Need for Continued Stay: Remain at risks for inpatient hospitalization, Discharge may exacerbated symptoms, Severe functional impairment Progress Toward Problem(s) and Goals/Treatment Plan: Patient education Supportive therapy Giovanny team level in a.m. Continue treatment as before Estimated Date of D/C: 04/24/17 - Smoking Cessation Smoking Cessation Initiated: Yes
[2017-04-20] MEDS: Aluminum Hydroxide/Magnesium Hydroxide Susp (30 mL) PO PRN (16:09)
--- NOTE | 2017-04-21 13:48 | PCM.PYCHPN ---
Psychiatric Progress Note - Psychiatric Progress Note Patient seen today, length of contact: 15 minutes Patient Chief Complaint: I feel little better. I still feel tired and not sleeping. Problems Identified/Issues Discussed: Patient seen. Chart reviewed. Case discussed with the staff. Issues related to illness and treatment were discussed with the patient. Reported compliant with treatment with no adverse affects. Tolerating treatment very well. Patient reported feeling little better. Also complaining about tiredness and not sleeping well. Education provided about the medications. Sleep hygiene also discussed with the patient. Patient is improving slowly. Needs more time for stabilization. Medicine is on the case for his swelling the groin. Improving. At the time of evaluation, patient was awake alert oriented 3, had no delusions , no auditory or visual hallucinations, no suicidal ideations or homicidal ideations. Medical Problems: None reported Diagnostic Results: Reviewed DSM 5 Symptoms Update: Improving with treatment Medication Change: No Medical Record Reviewed: Yes Consults ordered or reviewed: Reviewed Mental Status Examination - Cognitive Function Orientation: Person, Place, Situation, Time Memory: Intact Attention: WNL Concentration: WNL Association: WN Fund of Knowledge: [facility] Decription of patient's judgement and insights: Fair - Mood Mood: Depressed (Less than before) - Affect Affect: Other (Appears neutral) - Speech Speech: Appropriate - Formal Thought Process Formal Thought Process: Hallucinations - Suicidal Ideation Suicidal Ideation: No - Homicidal Ideation Homicidal Ideation: No Goal/Treatment Plan - Goal/Treatment Plan Need for Continued Stay: Remain at risks for inpatient hospitalization, Discharge may exacerbated symptoms, Severe functional impairment Progress Toward Problem(s) and Goals/Treatment Plan: Patient education Supportive therapy Sleep hygiene Continue treatment as before Estimated Date of D/C: 04/24/17 - Smoking Cessation Smoking Cessation Initiated: Yes
[2017-04-21] MEDS: Aluminum Hydroxide/Magnesium Hydroxide Susp (30 mL) PO PRN (16:02)
--- NOTE | 2017-04-22 13:37 | PCM.PYCHPN ---
Psychiatric Progress Note - Psychiatric Progress Note Patient seen today, length of contact: 15 minutes Patient Chief Complaint: I'm feeling much better Problems Identified/Issues Discussed: Patient seen. Chart reviewed. Case discussed with the staff. Issues related to illness and treatment were discussed with the patient. Reported compliant with treatment with no adverse affects. Tolerating treatment very well. Patient reported feeling much better. Hadar level is low. It's 0.3. Will increase the lithium to 300 mg 4 times a day. Patient is improving slowly. Needs more time for stabilization. Medicine is on the case for his swelling the groin. Improving. At the time of evaluation, patient was awake alert oriented 3, had no delusions , no auditory or visual hallucinations, no suicidal ideations or homicidal ideations. Medical Problems: None reported Diagnostic Results: Reviewed DSM 5 Symptoms Update: Improving with treatment Medication Change: Yes (Dose of lithium increased to 300 mg 4 times a day) Medical Record Reviewed: Yes Consults ordered or reviewed: Reviewed Mental Status Examination - Cognitive Function Orientation: Person, Place, Situation, Time Memory: Intact Attention: WNL Concentration: WNL Association: WN Fund of Knowledge: [facility] Decription of patient's judgement and insights: Fair - Mood Mood: Depressed (Less than before) - Affect Affect: Other (Appears neutral) - Speech Speech: Appropriate - Formal Thought Process Formal Thought Process: Hallucinations (Much less than before) - Suicidal Ideation Suicidal Ideation: No - Homicidal Ideation Homicidal Ideation: No Goal/Treatment Plan - Goal/Treatment Plan Need for Continued Stay: Remain at risks for inpatient hospitalization, Discharge may exacerbated symptoms, Severe functional impairment Progress Toward Problem(s) and Goals/Treatment Plan: Patient education Supportive therapy Sleep hygiene Dose of lithium was increased to 300 mg 4 times a day, as patient sleep and level was 0.3. Continue rest of the treatment as before Estimated Date of D/C: 04/24/17
[2017-04-22] MEDS: Aluminum Hydroxide/Magnesium Hydroxide Susp (30 mL) PO PRN (16:06)
--- NOTE | 2017-04-23 10:20 | PCM.BM ---
<Gisele Linares - Last Filed: 04/23/17 10:18> Treatment Plan Problems - Problems identified on initial assessmt Depression Date Initiated: 04/15/17 Time Initiated: 16:35 Assessment reference: NA Status: Active Suicidal Ideation Date Initiated: 04/15/17 Time Initiated: 16:35 Assessment reference: NA Status: Monitor Treatment assets and liabiliti Patient Assests: adapts well, cooperative, ADL independent, negotiates basic needs Patient Liabilities: physical pain, substance abuse - Milieu Protocol Maintain good personal hygiene: daily Encourage regular showers, daily Remind patient to perform daily oral care Maintain personal safety: every shift Educate patient to report safety concerns to staff, every shift Monitor environment for contraband/sharps Medication safety: Monitor for expected outcome, potential side effects: every shift, Assess barriers to learning: every shift, Assess readiness for medication education: every shift Milieu Narrative: Patient education Supportive therapy Sleep hygiene Dose of lithium was increased to 300 mg 4 times a day, as patient sleep and level was 0.3. Continue rest of the treatment as before Family Contact Family involvement: Family/SO is involved Family contact: Patient declines to allow family contact at present - Goals for Treatment Patient goals for treatment: "I want to go back to [place]." Discharge/Continuing Care - Education Needs Education Needs: Patient Medication, Patient Coping Skills, Patient Community resources - Discharge Discharge Criteria: Tolerates medication w/o severe side effects, Free of Suicidal thoughts, No longer exhibiting s/s of withdrawal, Reduction of target symptoms Discharge to:: Home - Treatment Team Participation Patient/Family/SO Statement: Patient education Supportive therapy Sleep hygiene Dose of lithium was increased to 300 mg 4 times a day, as patient sleep and level was 0.3. Continue rest of the treatment as before Discussed with Family/SO: No Was Patient/Family/SO present at Treatment Team Meeting: Yes Treatment Plan Review Patient participation: Yes Family/SO/Caregiver participation: No - Problem Depression Date Initiated: 04/23/17 Time Initiated: 10:19 Progress toward outcomes: unchanged Suicidal Ideation Date Initiated: 04/23/17 Time Initiated: 10:19 Progress toward outcomes: improved (Pt denies suicidal ideation today.) <Pat Cavazos - Last Filed: 04/23/17 10:57> Treatment assets and liabiliti Patient Assests: insightful Patient Liabilities: medical problems Family Contact - Goals for Treatment Patient's family/SO goals for treatment: plan for rehab <Luis Santiago - Last Filed: 04/23/17 17:34> - Diagnosis (1) Schizoaffective disorder, bipolar type Status: Acute Interventions: 04/16/17 10:48 * * Assess/adjust medications daily and /or as needed * See patient on an individual basis 7x/week to assess status of hallucinations * Discuss risks, benefits, side effects and alternatives of medications * 04/23/17 17:33 (2) Opioid use disorder, severe, dependence Status: Acute Interventions: 04/16/17 10:48 * * Assess 7x/week regarding severity of withdrawal * Educate regarding risks, benefits, side effects and alternatives of medications * Use Motivational Interviewing for abstinence * Use CBT for relapse prevention * Medication management for withdrawal symptoms * Encourage medication assisted treatment * 04/23/17 17:34
[2017-04-23] MEDS: Aluminum Hydroxide/Magnesium Hydroxide Susp (30 mL) PO PRN (17:21)
--- NOTE | 2017-04-23 17:37 | PCM.PYCHPN ---
Psychiatric Progress Note - Psychiatric Progress Note Patient seen today, length of contact: 15 minutes Patient Chief Complaint: I'm feeling much better Problems Identified/Issues Discussed: Patient seen. Chart reviewed. Case discussed with the staff. Issues related to illness and treatment were discussed with the patient. Reported compliant with treatment with no adverse affects. Tolerating treatment very well. Patient reported feeling much better. Better sleep. Patient is improving slowly. Needs more time for stabilization. Medicine is on the case for his swelling the groin. Improving. At the time of evaluation, patient was awake alert oriented 3, had no delusions , no auditory or visual hallucinations, no suicidal ideations or homicidal ideations. Medical Problems: None reported Diagnostic Results: Reviewed DSM 5 Symptoms Update: Improving with treatment Medication Change: No Medical Record Reviewed: Yes Consults ordered or reviewed: Reviewed Mental Status Examination - Cognitive Function Orientation: Person, Place, Situation, Time Memory: Intact Attention: WNL Concentration: WNL Association: [facility] Fund of Knowledge: [facility] Decription of patient's judgement and insights: Fair - Mood Mood: Depressed (Much less than before) - Affect Affect: Other (Appropriate) - Speech Speech: Appropriate - Formal Thought Process Formal Thought Process: No Impairment Psychotic Thoughts and Behaviors: None - Suicidal Ideation Suicidal Ideation: No - Homicidal Ideation Homicidal Ideation: No Goal/Treatment Plan - Goal/Treatment Plan Need for Continued Stay: Remain at risks for inpatient hospitalization, Discharge may exacerbated symptoms, Severe functional impairment Progress Toward Problem(s) and Goals/Treatment Plan: Patient education Supportive therapy Sleep hygiene Continue treatment as before Estimated Date of D/C: 04/27/17 - Smoking Cessation Smoking Cessation Initiated: Yes
[2017-04-24 07:30] VITALS: O2SAT 95
[2017-04-24] MEDS: Aluminum Hydroxide/Magnesium Hydroxide Susp (30 mL) PO PRN (15:41)
--- NOTE | 2017-04-24 18:11 | PCM.PYCHPN ---
Psychiatric Progress Note - Psychiatric Progress Note Patient seen today, length of contact: 15 minutes Patient Chief Complaint: "I have difficulty in sleep" Problems Identified/Issues Discussed: Patient was seen. Chart was reviewed important content noted. Nurse input received. Patient has no new complaints. No events overnight. Patient stated that he had trouble in slept. He stated that he is eating well. Patient denies any depressive symptoms. Denies suicidal or homicidal ideations. Patient does not report hallucinations. No delusions elicited. No paranoia elicited. Patient has remained in good clinical and behavioral control. He denied withdrawal symptoms Patient is finding medications beneficial and would like to continue with treatment plan. Patient appreciated that treatment team is trying to help. DSM 5 Symptoms Update: Schizoaffective d/o Opioid use d/o Cocaine use d/o Medication Change: No Medical Record Reviewed: Yes Mental Status Examination - Cognitive Function Orientation: Person, Place, Situation, Time Memory: Intact Attention: WNL Concentration: WNL Association: WNL Fund of Knowledge: WNL - Mood Mood: Depressed (Much less than before) - Affect Affect: Other (Appropriate) - Speech Speech: Appropriate - Formal Thought Process Formal Thought Process: No Impairment - Suicidal Ideation Suicidal Ideation: No - Homicidal Ideation Homicidal Ideation: No Goal/Treatment Plan - Goal/Treatment Plan Need for Continued Stay: Discharge may exacerbated symptoms, Severe functional impairment Progress Toward Problem(s) and Goals/Treatment Plan: Continue current treatment as per primary team except increase Trazodone to 100 mg po HS for insomnis Meds benefits, risk, s/e and alternative choices were discussed with the pt. He verbalized understanding and in agreement with the plan. therapy in milieu Estimated Date of D/C: 04/27/17
[2017-04-25 10:02] VITALS: TEMP 98.2
--- NOTE | 2017-04-25 17:50 | PCM.PYCHPN ---
Psychiatric Progress Note - Psychiatric Progress Note Patient seen today, length of contact: 15 minutes Patient Chief Complaint: "I was tossing and turning last night" Problems Identified/Issues Discussed: Patient was seen. Chart was reviewed important content noted. Nurse input received that he slept fine. Patient stated that he was tossing and turning last night. He was asking Haldol for anxiety symptoms. It is observed that he has had meds seeking behavior. He inquired and asked about pain meds. He stated that he is eating well. Patient reported depressed mood. Denies suicidal or homicidal ideations. Patient does not report hallucinations. No delusions elicited. No paranoia elicited. Patient has remained in good clinical and behavioral control. he denied withdrawal symptoms. He denied etoh withdrawal symptoms and cravings. Patient is finding medications beneficial and would like to continue with treatment plan. Patient appreciated that treatment team is trying to help. DSM 5 Symptoms Update: Schizoaffective d/o opioid use disorder opioid withdrawal Alcohol use d/o, severe, dependence cocaine use d/o Medication Change: No Medical Record Reviewed: Yes Mental Status Examination - Cognitive Function Orientation: Person, Place, Situation, Time Memory: Intact Attention: WNL Concentration: WNL Association: [facility] Fund of Knowledge: [facility] Decription of patient's judgement and insights: Limited/limited - Mood Mood: Depressed (Much less than before) - Affect Affect: Constricted, Other (Appropriate) - Speech Speech: Appropriate - Formal Thought Process Formal Thought Process: No Impairment - Suicidal Ideation Suicidal Ideation: No - Homicidal Ideation Homicidal Ideation: No Goal/Treatment Plan - Goal/Treatment Plan Need for Continued Stay: Discharge may exacerbated symptoms, Severe functional impairment Progress Toward Problem(s) and Goals/Treatment Plan: Continue current treatment as per primary team except increase Trazodone to 100 mg po HS for insomnia and encourage to ask trazodone for sleep if needed. Meds benefits, risk, s/e and alternative choices were discussed with the pt. He verbalized understanding and in agreement with the plan. therapy in milieu Estimated Date of D/C: 04/27/17 - Smoking Cessation Smoking Cessation Initiated: Yes
[2017-04-26 07:35] VITALS: BP 100/63; PULSE 80; RESP 16
[2017-04-26] MEDS ORDERED: Influenza Vaccine 60 mcg/0.5 mL SYR (4YR UP) IM ONE (10:15)
--- NOTE | 2017-04-26 14:07 | PCM.PYCHDC ---
Mental Status Examination - Mental Status Examination Orientation: Person, Place, Situation, Time Memory: Intact Mood: Neutral Affect: Other (Appropriate) Speech: Appropriate Attention: WNL Concentration: WNL Association: WNL Fund of Knowledge: WNL Formal Thought Process: No Impairment Description of patient's judgement and insight: Fair Psychotic Thoughts and Behaviors: None Suicidal Ideation: No Current Homicidal Ideation?: No Discharge Summary - Discharge Note Reason for Hospitalization: Schizoaffective disorder Opiate use disorder Opiate withdrawal Anxiolytics use disorder Anxiolytics withdrawal Cocaine use disorder Cocaine withdrawal Laboratory Data: Reviewed Consultations:: List each consultation separately and include: 1. Reason for request. 2. Findings. 3. Follow-up Consultations: Reviewed Summary of Hospital Course include:: 1. Description of specific treatment plan utilized for patients during their course of treatmen. 2. Summarize the time- course for resolution of acute symptoms and/or regressed behaviors. 3. Describe issues identified and worked on during hospitalization. 4. Describe medication utilized. 5. Describe medical problems identified and treated. 6. Reassessment of suicide risk Summary of Hospital Course: Patient is a 36 year old male with history of schizoaffective disorder and history of abusing heroin and cocaine and drinking was brought to ED by his mother as patient became increasingly depressed and made a suicidal ideation with a plan to hang himself. As per the patient he has history of schizophrenia paranoid type continuous. He was last discharged from the hospital in [place] almost 2 years ago. As per the patient he saw a psychiatrist in [place] almost a year ago. Since then he is been noncompliant with his medications. Patient reports a long history of abusing drugs. Patient reports he is using 15 bags of heroin and $200 of cocaine IV daily. Patient started using when he was 18 and has been using both heroin and cocaine for years. Patient last used yesterday. He reports drinking almost a liter of vodka 2 days ago. Patient reports that he started hearing voices telling him to harm himself. Yesterday patient became so depressed that he was in the process of attempting suicide by hanging when his mother walked in and intervened and escorted him to the hospital to get help. Patient reports depressed mood, feelings of hopelessness and helplessness, poor sleep and poor appetite. He also reports auditory hallucinations telling him to kill himself and persecutory delusions that he is being followed. He also reports at times anxiety and irritability but denies any panic attacks. Patient was started on medications including lithium and Seroquel. Doses of these medications were increased accordingly. Started on a when necessary medication also. Also started attending groups. With the above treatment and interventions, patient started feeling better. Today patient was stable and ready for discharge from the hospital. At the time of evaluation and discharge, patient was awake alert oriented 3, had no delusions, no auditory or visual hallucinations, no suicidal ideations or homicidal ideations. Patient was discharged in a stable condition, - Diagnosis (1) Schizoaffective disorder, bipolar type Status: Acute (2) Opioid use disorder, severe, dependence Status: Acute - Final Diagnosis (DSM 5) Condition upon Discharge: STABLE Disposition: HOME/ ROUTINE Follow-up Treatment Plan: Patient will go to [facility] for follow-up care after discharge from the hospital. Prescriptions/Medication Reconciliation: Benztropine [Cogentin] 1 mg PO 1800 #30 tab Raemon Carbonate [Raemon Carbonate 300MG] 300 mg PO QID #120 cap QUEtiapine [Seroquel] 300 mg PO HS #30 tab traZODone [Desyrel] 100 mg PO HS PRN #30 tab PRN Reason: Insomnia - Smoking Cessation Smoking Cessation Medication prescribed: Yes - Antipsychotic Medications Pt discharged on 2 or more routine antipsychotic medications: No
== END 2017-04-26 10:34 | disposition home or self-care (01) | DRG 430 ==
LOC: C.ER 10:38 → C.5E 15:11
PROVIDERS: ADMIT Psychiatry & Neurology Psychiatry; ATTEND Psychiatry & Neurology Psychiatry
PROC: GZ3ZZZZ Medication Management (ICD-10-PCS; principal; 2017-04-15)
PROC: HZ2ZZZZ Detoxification Services for Substance Abuse Treatment (ICD-10-PCS; 2017-04-15)
PROC: GZHZZZZ Group Psychotherapy (ICD-10-PCS; 2017-04-15)
PROC: GZ56ZZZ Individual Psychotherapy, Supportive (ICD-10-PCS; 2017-04-15)
PROC: HZ90ZZZ Pharmacotherapy for Substance Abuse Treatment, Nicotine Replacement (ICD-10-PCS; 2017-04-15)
DX: F25.0 Schizoaffective disorder, bipolar type (principal); R45.851 Suicidal ideations; F11.23 Opioid dependence with withdrawal; F14.23 Cocaine dependence with withdrawal; N45.3 Epididymo-orchitis; F13.10 Sedative, hypnotic or anxiolytic abuse, uncomplicated; B18.2 Chronic viral hepatitis C; N43.3 Hydrocele, unspecified; F10.10 Alcohol abuse, uncomplicated; F17.210 Nicotine dependence, cigarettes, uncomplicated; F20.0 Paranoid schizophrenia; D72.829 Elevated white blood cell count, unspecified; Z91.14 Patient's other noncompliance with medication regimen; Z79.899 Other long term (current) drug therapy

== ENCOUNTER 2017-06-10 17:26 | Inpatient (IN) | payer MEDICAID, OTHER ==
[2017-06-10 18:47] LABS: BASO % 0.5 % (0.0-2.0); EOS # 0.2 K/uL (0.0-0.7); EOS % 1.6 % (0.0-4.0); HEMATOCRIT 37.8 % (35.0-51.0); LYMPH # 2.6 K/uL (1.0-4.3); LYMPH % 26.8 % (20.0-40.0); MEAN CELL VOLUME 73.8 fL (80.0-94.0); MEAN CORPUSCULAR HGB CONC 32.5 g/dL (33.0-37.0); MEAN PLATELET VOLUME 7.4 fL (7.2-11.7); MONO # 0.6 K/uL (0.0-0.8); MONO % 6.7 % (0.0-10.0); RED CELL DISTRIBUTION WIDTH 16.5 % (11.5-14.5); WHITE BLOOD COUNT 9.6 K/uL (4.8-10.8)
[2017-06-10 18:49] LABS: RBC URINE < 1 /hpf (0-3); URINE BILIRUBIN NEGATIVE (NEGATIVE); URINE BLOOD NEGATIVE (NEGATIVE); URINE COLOR Yellow (YELLOW); URINE GLUCOSE (UA) NORMAL (Normal); URINE KETONE TRACE mg/dL (NEGATIVE); URINE LEUKOCYTE ESTERASE NEG Leu/uL (Negative); URINE PROTEIN NEGATIVE (NEGATIVE); URINE UROBILINOGEN NORMAL mg/dL (0.2-1.0); WBC URINE 1 /hpf (0-5)
[2017-06-10 18:59] LABS: ALCOHOL SERUM < 10 mg/dl (0-10); ALKALINE PHOSPHATASE 89 U/L (38-126); ALT/SGPT 79 U/L (21-72); AST/SGOT 55 U/L (17-59); BILIRUBIN,TOTAL 0.8 mg/dL (0.2-1.3); BLOOD UREA NITROGEN 19 mg/dL (9-20); CALCIUM 8.7 mg/dl (8.6-10.4); CARBON DIOXIDE 27 mmol/L (22-30); CHLORIDE 98 mmol/L (98-107); GFR AFRICAN-AMERICAN > 60; GLUCOSE,RANDOM 117 mg/dL (75-110); POTASSIUM 3.7 mmol/L (3.6-5.2); SODIUM 136 mmol/L (132-148); TOTAL PROTEIN 9.2 g/dL (6.3-8.3)
[2017-06-10 19:43] LABS: ALB/GLOB RATIO 0.9 (1.0-2.1)
--- NOTE | 2017-06-10 21:37 | C.PDOC ---
History Of Present Illness 36 y/o male presents to ED requesting detox from cocaine and heroin. Patient has no physical complaints at this time. Time Seen by Provider: 06/10/17 18:34 Chief Complaint (Nursing): Psychiatric Evaluation History Per: Patient History/Exam Limitations: no limitations Onset/Duration Of Symptoms: Days Current Symptoms Are (Timing): Still Present Suicide/Self Injury Attempted (Context): None Modifying Factor(s): Cocaine Past Medical History Reviewed: Historical Data, Nursing Documentation, Vital Signs Vital Signs: Last Vital Signs Temp 97.5 F L 06/10/17 17:32 Pulse 60 06/10/17 22:01 Resp 18 06/10/17 23:13 BP 95/57 L 06/10/17 22:01 Pulse Ox 97 06/10/17 22:29 - Medical History PMH: Bipolar Disorder, Depression, Schizophrenia Surgical History: No Surg Hx - [facility] Procedures DETOXIFICATION SERVICES FOR SUBSTANCE ABUSE TREATMENT (04/15/17) GROUP PSYCHOTHERAPY (04/15/17) INDIVIDUAL PSYCHOTHERAPY, SUPPORTIVE (04/15/17) MEDICATION MANAGEMENT (04/15/17) PHARMACOTHERAPY FOR SUBSTANCE ABUSE, NICOTINE REPLACE (04/15/17) Family History: States: No Known Family Hx - Social History Hx Alcohol Use: Yes Hx Substance Use: No - Immunization History Hx Tetanus Toxoid Vaccination: No Hx Influenza Vaccination: No Hx Pneumococcal Vaccination: No Review Of Systems Constitutional: Negative for: Fever, Chills Cardiovascular: Negative for: Chest Pain Respiratory: Negative for: Shortness of Breath Gastrointestinal: Negative for: Nausea, Vomiting Skin: Negative for: Rash Physical Exam - Physical Exam Appears: No Acute Distress, Chronically Ill, Other (disheveled, emaciated) Skin: Warm, Dry, No Rash Head: Normacephalic Eye(s): bilateral: Normal Inspection Oral Mucosa: Moist Cardiovascular: Rhythm Regular Respiratory: Normal Breath Sounds, No Rales, No Rhonchi, No Wheezing Gastrointestinal/Abdominal: Soft, No Tenderness, No Guarding, No Rebound Neurological/Psych: Oriented x3, Normal Speech ED Course And Treatment - Laboratory Results Result Diagrams: 06/10/17 18:38 06/10/17 18:38 Lab Interpretation: Abnormal (tox + opiates, + benzo) O2 Sat by Pulse Oximetry: 97 (RA) Pulse Ox Interpretation: Normal Reevaluation Time: 21:35 Reassessment Condition: Improved - Physician Consult Information Outcome Of Conversation: [id number]: d/w Crisis, ok to Psych as no Detox beds available, same care pending. Disposition Doctor Will See Patient In The: Hospital Counseled Patient/Family Regarding: Studies Performed, Diagnosis - Disposition Disposition: HOSPITALIZED Disposition Time: 21:36 Condition: GOOD - Clinical Impression Clinical Impression: Schizoaffective disorder, bipolar type, Opioid use disorder, severe, dependence , Alcohol abuse, Cocaine abuse - Scribe Statement The provider has reviewed the documentation as recorded by the Raffaele Lagunas All medical record entries made by the Raffaele were at my direction and personally dictated by me. I have reviewed the chart and agree that the record accurately reflects my personal performance of the history, physical exam, medical decision making, and the department course for this patient. I have also personally directed, reviewed, and agree with the discharge instructions and disposition.
[2017-06-10] MEDS ORDERED: Pneumococcal 23-Valent Vaccine IM ONE (23:32)
--- NOTE | 2017-06-10 23:52 | PCM.BM ---
<JordyAlena - Last Filed: 06/10/17 23:47> Treatment Plan Problems - Problems identified on initial assessmt Auditory Hallucinations Date Initiated: 06/10/17 Time Initiated: 22:35 Assessment reference: NA Status: Active Suicidal Behavior Date Initiated: 06/10/17 Time Initiated: 22:35 Assessment reference: NA Status: Monitor Treatment assets and liabiliti Patient Assests: insightful, ADL independent, physically healthy, good support system, negotiates basic needs Patient Liabilities: substance abuse (Cocaine, Heroin, Xanax, ETOH) - Milieu Protocol Maintain good personal hygiene: daily Encourage regular showers, daily Remind patient to perform daily oral care Conduct patient checks and document Observation sheet: Q15 minutes Maintain personal safety: every shift Educate patient to report safety concerns to staff, every shift Monitor environment for contraband/sharps Medication safety: Monitor for expected outcome, potential side effects: every shift, Assess barriers to learning: every shift, Assess readiness for medication education: every shift <Gisele Linares - Last Filed: 06/14/17 11:15> Family Contact Family involvement: Famliy/SO not involved - Goals for Treatment Patient goals for treatment: "I want to go to rehab." Discharge/Continuing Care - Education Needs Education Needs: Patient Medication, Patient Coping Skills - Discharge Discharge Criteria: Tolerates medication w/o severe side effects, Free of Suicidal thoughts Discharge to:: Substance Abuse Rehab - Treatment Team Participation Discussed with Family/SO: No Was Patient/Family/SO present at Treatment Team Meeting: Yes <Carlo Banks - Last Filed: 06/14/17 11:19> - Diagnosis (1) Bipolar 1 disorder, mixed, severe Status: Acute Interventions: 06/14/17 11:18 * Assess/adjust medications daily and /or as needed * See patient on an individual basis 7x/week to assess level of manic behaviors and stability * Discuss risks, benefits, side effects and alternatives of medications * (2) Opioid use disorder, severe, dependence Status: Acute Interventions: 06/14/17 11:19 * Assess 7x/week regarding severity of withdrawal * Educate regarding risks, benefits, side effects and alternatives of medications * Use Motivational Interviewing for abstinence * Use CBT for relapse prevention * Medication management for withdrawal symptoms * Encourage medication assisted treatment *
--- NOTE | 2017-06-11 10:16 | PCM.PSYCH ---
Initial Psychiatric Evaluation - Initial Psychiatric Evaluation Type of Admission: Voluntary Legal Status: Capacity Chief Complaint (in patient's own words): I was feeling depressed. History of Present Illness and Precipitating Events: The pt is a 36 yr old male who was brought to ED by his sister due to hearing voices telling the pt to harm himself and the pt having SI to hang himself for the past 2 months. The pt has h/o multiple inpatient psych admissions last discharged from [facility] approximately 2 months ago for attempted suicide by hanging. The pt was prescribed the following medications upon discharge, Haring, 1200mg, Seroquel, 600, mg, and Trazadone, 100mg which the pt reports not being compliant. As per the pt he was also admitted psychiatrically in 2013 in a hospital in [place] for walking into ongoing traffic attempting elf harm. The pt was discharged and non-complaint with taking his medication. Pt reports that he relapsed on heroin and cocaine soon after discharge. Patient reports of withdrawal symptoms including sweating, headaches, anxiety, nausea and cramps. He reports depressed mood and feelings of hopelessness and helplessness. He also reports racing of thoughts and flight of ideas. Patient denies any auditory or visual hallucinations or any psychotic symptoms. PMH: none reported Current Medications: Active Medications Generic Name Dose Route Start Last Admin Trade Name Freq PRN Reason Stop Dose Admin Al Hydrox/Mg Hydrox/Simethicone 30 ml 06/10/17 22:50 Maalox 30 Ml PO TID PRN Indigestion / Heartburn Clonidine HCl 0.1 mg 06/10/17 22:50 Catapres PO Q8 PRN COWS Score More or Equal to 5 Hydroxyzine HCl 25 mg 06/10/17 22:52 Atarax PO Q6 PRN Agitation Loperamide HCl 2 mg 06/10/17 22:50 Imodium PO Q8 PRN Diarrhea Ondansetron HCl 4 mg 06/10/17 22:50 Zofran Tab PO Q8 PRN Nausea/Vomiting Quetiapine Fumarate 100 mg 06/10/17 23:00 06/10/17 23:32 Seroquel PO Not Given HS FETSUS Past Psychiatric History - Past Psychiatric History Previous Treatment History: Inpatient Pertinent Medical Hx (Current Medical&Sleep Prob, Allergies): Allergies Allergy/AdvReac Type Severity Reaction Status Date / Time No Known Allergies Allergy Verified 11/16/17 17:34 Benztropine [Cogentin] 1 mg PO 1800 #30 tab 04/26/17 Haring Carbonate [Haring Carbonate 300MG] 300 mg PO QID #120 cap 04/26/17 QUEtiapine [Seroquel] 300 mg PO HS #30 tab 04/26/17 traZODone [Desyrel] 100 mg PO HS PRN #30 tab 04/26/17 Review of Systems - Review of Systems All systems: reviewed and no additional remarkable complaints except - Psychiatric Psychiatric: Anxiety, Irritability, Mood Swings, Suicidal Ideation Mental Status Examination - Personal Presentation Personal Presentation: Looks stated age - Affect Affect: Constricted - Motor Activity Motor Activity: Calm - Reliability in Providing Information Reliability in Providing Information: Fair - Speech Speech: Organized - Mood Mood: Depressed, Anxious - Formal Thought Process Formal Thought Process: No Impairment - Obsessions/Compulsions Obsessions: No Compulsions: No - Cognitive Functions Orientation: Person, Place, Situation, Time Sensorium: Alert Attention/Concentration: Attentive Abstract Thinking: [place] Estimate of Intelligence: Below average Judgement: Imparied, as evidence by: Poor judgement, Imparied, as evidence by: Lack of insight into illness - Risk Risk: Suicidal, Withdrawal, Diminished functioning - Strength & Assets Inventory Strength & Assets Inventory: Cooperative - Limitations Limitations: Living alone DSM 5 DX - DSM 5 DSM 5 Diagnosis: 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 Cocaine use disorder moderate Opioid use disorder severe Opioid withdrawal - Recommended/Plan of Treatment Treatment Recommendations and Plan of Treatment: 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
[2017-06-11] MEDS: Aluminum Hydroxide/Magnesium Hydroxide Susp (30 mL) PO PRN (17:20)
--- NOTE | 2017-06-12 20:23 | PCM.PYCHPN ---
Psychiatric Progress Note - Psychiatric Progress Note Patient seen today, length of contact: 17 minutes Patient Chief Complaint: I was not able to sleep last night Problems Identified/Issues Discussed: Patient was seen and evaluated, chart reviewed and nurse input received. He was irritable, loud, intrusive and reported that he is hearing voices and had depressed mood. Case was discussed with the nurse. Pt reports depressed mood with helplessness, insomnia, low appetite, AH, and helplessness. He is isolated and not involved in group activities. Patient reports improvement in his withdrawal symptoms. He is taking medication and denies any side effects. 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 Cocaine use disorder moderate Opioid use disorder severe Opioid withdrawl Medication Change: Yes Medical Record Reviewed: Yes Mental Status Examination - Cognitive Function Orientation: Person, Place, Situation, Time Memory: Intact Attention: WNL Concentration: Poor Association: Loose Fund of Knowledge: WNL - Mood Mood: Depressed, Anxious - Affect Affect: Constricted - Speech Speech: Loud - Formal Thought Process Formal Thought Process: Hallucinations, Delusions, Paranoia Psychotic Thoughts and Behaviors: yes - Suicidal Ideation Suicidal Ideation: No - Homicidal Ideation Homicidal Ideation: No Goal/Treatment Plan - Goal/Treatment Plan Need for Continued Stay: Severe depression anxiety, Discharge may exacerbated symptoms Progress Toward Problem(s) and Goals/Treatment Plan: 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
[2017-06-13] MEDS: Aluminum Hydroxide/Magnesium Hydroxide Susp (30 mL) PO PRN (12:56)
--- NOTE | 2017-06-13 18:58 | PCM.PYCHPN ---
Psychiatric Progress Note - Psychiatric Progress Note Patient seen today, length of contact: 17 minutes Patient Chief Complaint: I feel little better Problems Identified/Issues Discussed: Patient was seen and evaluated, chart reviewed and nurse input received. He was irritable, loud, intrusive and reported that he is still hearing voices and had depressed mood. Case was discussed with the nurse. Pt reports depressed mood with helplessness, insomnia, low appetite, AH, and helplessness. He is isolated and not involved in group activities. Patient reports improvement in his withdrawal symptoms. He is taking medication and denies any side effects. He needs more time for stabilization DSM 5 Symptoms Update: Bipolar d/o mixed presentation, w/o psychotic features Opiois use d/o, dependence, withdrawal Medication Change: Yes (Increase seroquel 200mg po HS) Medical Record Reviewed: Yes Mental Status Examination - Cognitive Function Orientation: Person, Place, Situation, Time Memory: Intact Attention: WNL Concentration: Poor Association: Loose Fund of Knowledge: WNL - Mood Mood: Depressed, Anxious - Affect Affect: Constricted - Speech Speech: Loud - Formal Thought Process Formal Thought Process: Hallucinations, Delusions, Paranoia Psychotic Thoughts and Behaviors: yes - Suicidal Ideation Suicidal Ideation: No - Homicidal Ideation Homicidal Ideation: No Goal/Treatment Plan - Goal/Treatment Plan Need for Continued Stay: Severe depression anxiety, Discharge may exacerbated symptoms Progress Toward Problem(s) and Goals/Treatment Plan: 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
--- NOTE | 2017-06-14 11:17 | PCM.PYCHPN ---
Psychiatric Progress Note - Psychiatric Progress Note Patient seen today, length of contact: 17 minutes Patient Chief Complaint: I was feeling depressed. Medication Change: Yes (Increase seroquel 200mg po HS) Medical Record Reviewed: Yes Mental Status Examination - Cognitive Function Orientation: Person, Place, Situation, Time Memory: Intact Attention: WNL Concentration: Poor Association: Loose Fund of Knowledge: WNL - Mood Mood: Depressed, Anxious - Affect Affect: Constricted - Speech Speech: Loud - Formal Thought Process Formal Thought Process: Hallucinations, Delusions, Paranoia - Suicidal Ideation Suicidal Ideation: No - Homicidal Ideation Homicidal Ideation: No Goal/Treatment Plan - Goal/Treatment Plan Need for Continued Stay: Severe depression anxiety, Discharge may exacerbated symptoms Progress Toward Problem(s) and Goals/Treatment Plan: 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
--- NOTE | 2017-06-15 14:24 | PCM.PYCHPN ---
Psychiatric Progress Note - Psychiatric Progress Note Patient seen today, length of contact: 17 minutes Patient Chief Complaint: "I feel down" Problems Identified/Issues Discussed: The patient was seen, chart reviewed, and case discussed with staff. The patient had no events overnight. He reports poor sleep last night. He reports improvement in his mood. Staff reports that he was previously irritable and loud, but he denies this. He reports auditory hallucinations that are worsening. He reports he was previously taking lithium and Seroquel, medications and treatment plan discussed. He reports continued improvement in his withdrawal symptoms. He shows increased socialization and attends group activities. The patient is taking medications and denies any side effects. Symptoms are improving but needs more time to stabilize. After care discussed, support and psychoeducation given. Medical Record Reviewed: Yes Mental Status Examination - Cognitive Function Orientation: Person, Place, Situation, Time Memory: Intact Attention: WNL Concentration: Poor Association: Loose Fund of Knowledge: WNL - Mood Mood: Depressed, Anxious - Affect Affect: Constricted - Speech Speech: Loud - Formal Thought Process Formal Thought Process: Hallucinations, Delusions, Paranoia - Suicidal Ideation Suicidal Ideation: No - Homicidal Ideation Homicidal Ideation: No Goal/Treatment Plan - Goal/Treatment Plan Need for Continued Stay: Severe depression anxiety, Discharge may exacerbated symptoms Progress Toward Problem(s) and Goals/Treatment Plan: 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
[2017-06-15] MEDS: Aluminum Hydroxide/Magnesium Hydroxide Susp (30 mL) PO PRN (14:38)
--- NOTE | 2017-06-16 19:14 | PCM.PYCHPN ---
Psychiatric Progress Note - Psychiatric Progress Note Patient seen today, length of contact: 17 minutes Patient Chief Complaint: "I feel little better" Problems Identified/Issues Discussed: The patient was seen, chart reviewed, and case discussed with staff. The patient reports improvement in his mood and improvement in his paranoia. However, he still reports auditory hallucinations and reports paranoia. He reports continued improvement in his withdrawal symptoms. He shows increased socialization and attends group activities. The patient is taking medications and denies any side effects. Symptoms are improving but needs more time to stabilize. After care discussed, support and psychoeducation given. Medication Change: No Medical Record Reviewed: Yes Mental Status Examination - Cognitive Function Orientation: Person, Place, Situation, Time Memory: Intact Attention: WNL Concentration: Poor Association: Loose Fund of Knowledge: WNL - Mood Mood: Depressed, Anxious - Affect Affect: Constricted - Speech Speech: Loud - Formal Thought Process Formal Thought Process: Hallucinations, Delusions, Paranoia - Suicidal Ideation Suicidal Ideation: No - Homicidal Ideation Homicidal Ideation: No Goal/Treatment Plan - Goal/Treatment Plan Need for Continued Stay: Severe depression anxiety, Discharge may exacerbated symptoms Progress Toward Problem(s) and Goals/Treatment Plan: 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
--- NOTE | 2017-06-17 22:05 | PCM.PYCHPN ---
Psychiatric Progress Note - Psychiatric Progress Note Patient seen today, length of contact: 15 min Patient Chief Complaint: "OK" Problems Identified/Issues Discussed: The pt is seen, chart reviewed, case discussed with staff. The pt is compliant with medications and reports no side-effects. Symptoms are improving but needs more time to stabilize. After care discussed, support and psychoeducation given. Medication Change: No Medical Record Reviewed: Yes Mental Status Examination - Cognitive Function Orientation: Person, Place, Situation, Time Memory: Intact Attention: WNL Concentration: Poor Association: Loose Fund of Knowledge: WNL - Mood Mood: Depressed, Anxious - Affect Affect: Constricted - Speech Speech: Loud - Formal Thought Process Formal Thought Process: Paranoia - Suicidal Ideation Suicidal Ideation: No - Homicidal Ideation Homicidal Ideation: No Goal/Treatment Plan - Goal/Treatment Plan Need for Continued Stay: Severe depression anxiety, Discharge may exacerbated symptoms, Severe functional impairment Progress Toward Problem(s) and Goals/Treatment Plan: Continue medications Support and psychoeducation daily Attend groups and activities daily After care planning by GIORGI Estimated Date of D/C: 06/18/17
--- NOTE | 2017-06-18 09:33 | PCM.PYCHPN ---
Psychiatric Progress Note - Psychiatric Progress Note Patient seen today, length of contact: 15 min Patient Chief Complaint: "I feel down" Problems Identified/Issues Discussed: The patient was seen, chart reviewed, and case discussed with staff. The patient had no events overnight. He reports poor sleep last night. He reports improvement in his mood. Staff reports that he was previously irritable and loud, but he denies this. He reports auditory hallucinations that are worsening. He reports he was previously taking lithium and Seroquel, medications and treatment plan discussed. He reports continued improvement in his withdrawal symptoms. He shows increased socialization and attends group activities. The patient is taking medications and denies any side effects. Symptoms are improving but needs more time to stabilize. After care discussed, support and psychoeducation given. Medication Change: No Medical Record Reviewed: Yes Mental Status Examination - Cognitive Function Orientation: Person, Place, Situation, Time Memory: Intact Attention: WNL Concentration: Poor Association: Loose Fund of Knowledge: WNL - Mood Mood: Depressed, Anxious - Affect Affect: Constricted - Speech Speech: Loud - Formal Thought Process Formal Thought Process: Paranoia - Suicidal Ideation Suicidal Ideation: No - Homicidal Ideation Homicidal Ideation: No Goal/Treatment Plan - Goal/Treatment Plan Need for Continued Stay: Severe depression anxiety, Discharge may exacerbated symptoms, Severe functional impairment Progress Toward Problem(s) and Goals/Treatment Plan: 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
--- NOTE | 2017-06-20 05:43 | PCM.PYCHPN ---
Psychiatric Progress Note - Psychiatric Progress Note Patient seen today, length of contact: 15 min Patient Chief Complaint: "OK" Problems Identified/Issues Discussed: The pt is seen, chart reviewed, case discussed with staff. Support given, CBT and [place] used briefly No new symptoms reported, improving slowly and needs more time No SEs from medications, risks discussed. After care discussed He still c/o some anxiety, irritability Medication Change: No Medical Record Reviewed: Yes Mental Status Examination - Cognitive Function Orientation: Person, Place, Situation, Time Memory: Intact Attention: WNL Concentration: Poor Association: Loose Fund of Knowledge: WNL - Mood Mood: Depressed, Anxious - Affect Affect: Constricted - Speech Speech: Loud - Formal Thought Process Formal Thought Process: Paranoia - Suicidal Ideation Suicidal Ideation: No - Homicidal Ideation Homicidal Ideation: No Goal/Treatment Plan - Goal/Treatment Plan Need for Continued Stay: Severe depression anxiety, Discharge may exacerbated symptoms, Severe functional impairment Progress Toward Problem(s) and Goals/Treatment Plan: Continue medications Support and psychoeducation daily Attend groups and activities daily After care planning by GIORGI Estimated Date of D/C: 06/21/17
[2017-06-20 11:37] LABS: FREE T4 0.88 ng/dL (0.78-2.19)
[2017-06-20 11:51] LABS: THYROID STIMULATING HORMONE 0.11 mIU/L (0.46-4.68)
--- NOTE | 2017-06-20 12:50 | PCM.PYCHPN ---
Psychiatric Progress Note - Psychiatric Progress Note Patient seen today, length of contact: 15 min Patient Chief Complaint: "I feel down" Problems Identified/Issues Discussed: The patient was seen, chart reviewed, and case discussed with staff. The patient had no events overnight. He reports poor sleep last night. He reports improvement in his mood. Staff reports that he was previously irritable and loud, but he denies this. He reports auditory hallucinations that are worsening. He reports he was previously taking lithium and Seroquel, medications and treatment plan discussed. He reports continued improvement in his withdrawal symptoms. He shows increased socialization and attends group activities. The patient is taking medications and denies any side effects. Symptoms are improving but needs more time to stabilize. After care discussed, support and psychoeducation given. Medication Change: No Medical Record Reviewed: Yes Mental Status Examination - Cognitive Function Orientation: Person, Place, Situation, Time Memory: Intact Attention: WNL Concentration: Poor Association: Loose Fund of Knowledge: WNL - Mood Mood: Depressed, Anxious - Affect Affect: Constricted - Speech Speech: Loud - Formal Thought Process Formal Thought Process: Paranoia - Suicidal Ideation Suicidal Ideation: No - Homicidal Ideation Homicidal Ideation: No Goal/Treatment Plan - Goal/Treatment Plan Need for Continued Stay: Severe depression anxiety, Discharge may exacerbated symptoms, Severe functional impairment Progress Toward Problem(s) and Goals/Treatment Plan: 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
--- NOTE | 2017-06-20 22:25 | CP.PCM.CON ---
<Magda Hinson - Last Filed: 06/20/17 22:17> History of Present Illness - History of Present Illness History of Present Illness: Medicine consult for low TSH. Patient is a 36 year old male admitted to psych for suicidal ideation and auditory hallucinations. Patient has PMHx of HTN, HLD, low TSH, Bipolar disorder , cocaine use disorder, and opioid use disorder. Medicine consulted for patient 's low TSH. Patient says he had been told this 2 years ago by a doctor in [place], but he never followed up. Patient admits to anxiety, heat intolerance, and increased perspiration. Patient admits to 20lb weight loss in the past 3 months, but believes it is due to his drug use and decreased PO intake. Patient denies headache, chest pain, palpitation, abdominal pain, nausea , vomiting, constipation, or diarrhea. PMHx: HTN, HLD, low TSH, Bipolar disorder, cocaine use disorder, and opioid use disorder Psurg: surgical repair of jaw fracture in 1999 Socialhx: admits to cocaine, alcohol, heroin, xanax Famhx: none Review of Systems - Constitutional Constitutional: Weight Loss. absent: Fatigue, Headache - EENT Eyes: absent: Blurred Vision, Diplopia - Cardiovascular Cardiovascular: absent: Chest Pain, Dyspnea, Leg Edema, Palpitations - Respiratory Respiratory: absent: Dyspnea, Dyspnea on Exertion, Wheezing, Stridor - Gastrointestinal Gastrointestinal: absent: Abdominal Pain, Constipation, Diarrhea, Nausea, Vomiting - Genitourinary Genitourinary: absent: Difficulty Urinating - Integumentary Integumentary: absent: Rash - Endocrine Endocrine: Heat Intolorance. absent: Palpitations Past Patient History - Infectious Disease Hx of Infectious Diseases: None - Past Social History Smoking Status: Heavy Smoker > 10 Cigarettes Daily - CARDIAC Hx Hypertension: No - PULMONARY Hx Tuberculosis: No - NEUROLOGICAL Hx Seizures: No - HEMATOLOGICAL/ONCOLOGICAL Hx Human Immunodeficiency Virus (HIV): No - GENITOURINARY/GYNECOLOGICAL Hx Sexually Transmitted Disorders: No - PSYCHIATRIC Hx Substance Use: Yes - SURGICAL HISTORY Hx Surgeries: No - ANESTHESIA Hx Anesthesia: No Meds Allergies/Adverse Reactions: Allergies Allergy/AdvReac Type Severity Reaction Status Date / Time No Known Allergies Allergy Verified 06/10/17 17:34 - Medications Medications: Current Medications Al Hydrox/Mg Hydrox/Simethicone (Maalox 30 Ml) 30 ml PO TID PRN PRN Reason: Indigestion / Heartburn Last Admin: 06/15/17 14:38 Dose: 30 ml Clonidine HCl (Catapres) 0.1 mg PO Q8 PRN PRN Reason: COWS Score More or Equal to 5 Hydroxyzine HCl (Atarax) 25 mg PO Q6 PRN PRN Reason: Agitation Last Admin: 06/20/17 10:54 Dose: 25 mg Parshall Carbonate (Parshall Carbonate 300mg) 300 mg PO DAILY [facility] Last Admin: 06/20/17 09:24 Dose: 300 mg Parshall Carbonate (Parshall Carbonate 300mg) 600 mg PO HS [facility] Last Admin: 06/20/17 21:17 Dose: 600 mg Loperamide HCl (Imodium) 2 mg PO Q8 PRN PRN Reason: Diarrhea Nicotine (Nicoderm Cq) 1 patch TD DAILY [facility] Last Admin: 06/20/17 09:23 Dose: 1 patch Ondansetron HCl (Zofran Tab) 4 mg PO Q8 PRN PRN Reason: Nausea/Vomiting Pseudoephedrine HCl (Sudafed Tab) 30 mg PO Q6 [facility] Last Admin: 06/20/17 20:14 Dose: 30 mg Quetiapine Fumarate (Seroquel) 400 mg PO HS [facility] Last Admin: 06/20/17 21:17 Dose: 400 mg Sertraline HCl (Zoloft) 50 mg PO DAILY [facility] Last Admin: 06/20/17 09:25 Dose: 50 mg Physical Exam - Head Exam Head Exam: ATRAUMATIC, NORMAL INSPECTION, NORMOCEPHALIC - Eye Exam Eye Exam: EOMI, Normal appearance - ENT Exam ENT Exam: Mucous Membranes Moist - Respiratory Exam Respiratory Exam: Clear to Auscultation Bilateral, NORMAL BREATHING PATTERN. absent: Decreased Breath Sounds, Rhonchi, Wheezes, Respiratory Distress, Stridor - Cardiovascular Exam Cardiovascular Exam: REGULAR RHYTHM, RRR, +S1, +S2 - GI/Abdominal Exam GI & Abdominal Exam: Normal Bowel Sounds, Soft - Extremities Exam Extremities exam: Positive for: normal inspection. Negative for: calf tenderness, pedal edema - Neurological Exam Neurological exam: Alert, Oriented x3 - Psychiatric Exam Psychiatric exam: Normal Affect, Normal Mood - Skin Skin Exam: Intact, Normal Color, Warm Results - Vital Signs Recent Vital Signs: Last Vital Signs Temp 98.2 F 06/17/17 06:57 Pulse 75 06/20/17 16:27 Resp 19 06/17/17 06:57 BP 113/77 06/20/17 16:27 Pulse Ox 97 06/10/17 23:54 - Labs Result Diagrams: 06/10/17 18:38 06/10/17 18:38 Labs: Laboratory Results - last 24 hr 06/20/17 11:02 Free T4 0.88 TSH 3rd Generation 0.11 L Assessment & Plan - Assessment and Plan (Free Text) Assessment: Low TSH TSH: .11 Free T4: .88 Patient explained to follow up with Primary Doctor as outpatient for further recommendations hx HTN blood pressure WNL on this admission continue to monitor as an outpatient hx HLD follow up with PMD Cocaine use disorder continue medications and management as per psych Opioid use disorder continue medications and management as per psych Bipolar Disorder continue medications and management as per psych Please re-consult medicine if needed, thank you <Eduar Hoffman - Last Filed: 06/21/17 06:26> Meds - Medications Medications: Current Medications Al Hydrox/Mg Hydrox/Simethicone (Maalox 30 Ml) 30 ml PO TID PRN PRN Reason: Indigestion / Heartburn Last Admin: 06/15/17 14:38 Dose: 30 ml Clonidine HCl (Catapres) 0.1 mg PO Q8 PRN PRN Reason: COWS Score More or Equal to 5 Hydroxyzine HCl (Atarax) 25 mg PO Q6 PRN PRN Reason: Agitation Last Admin: 06/20/17 10:54 Dose: 25 mg [place] Carbonate (Parshall Carbonate 300mg) 300 mg PO DAILY [facility] Last Admin: 06/20/17 09:24 Dose: 300 mg [place] Carbonate (Parshall Carbonate 300mg) 600 mg PO HS [facility] Last Admin: 06/20/17 21:17 Dose: 600 mg Loperamide HCl (Imodium) 2 mg PO Q8 PRN PRN Reason: Diarrhea Nicotine (Nicoderm Cq) 1 patch TD DAILY [facility] Last Admin: 06/20/17 09:23 Dose: 1 patch Ondansetron HCl (Zofran Tab) 4 mg PO Q8 PRN PRN Reason: Nausea/Vomiting Pseudoephedrine HCl (Sudafed Tab) 30 mg PO Q6 [facility] Last Admin: 06/20/17 20:14 Dose: 30 mg Quetiapine Fumarate (Seroquel) 400 mg PO HS [facility] Last Admin: 06/20/17 21:17 Dose: 400 mg Sertraline HCl (Zoloft) 50 mg PO DAILY [facility] Last Admin: 06/20/17 09:25 Dose: 50 mg Results - Vital Signs Recent Vital Signs: Last Vital Signs Temp 98.2 F 06/17/17 06:57 Pulse 75 06/20/17 16:27 Resp 19 06/17/17 06:57 BP 113/77 06/20/17 16:27 Pulse Ox 97 06/10/17 23:54 - Labs Result Diagrams: 06/10/17 18:38 06/10/17 18:38 Labs: Laboratory Results - last 24 hr 06/20/17 11:02 Free T4 0.88 TSH 3rd Generation 0.11 L Assessment & Plan - Date & Time Date: 06/21/17 (I have seen and examined the patient. I agree with the findings and plan of care as documented by Dr. Hinson. Consulted due to low TSH. Free T4 within normal limits. Advised patient should follow up as outpatient to recheck thyroid.) Time: 06:24 Attending/Attestation - Attestation I have personally seen and examined this patient.: Yes I have fully participated in the care of the patient.: Yes I have reviewed all pertinent clinical information: Yes
--- NOTE | 2017-06-21 09:47 | PCM.PYCHPN ---
Psychiatric Progress Note - Psychiatric Progress Note Patient seen today, length of contact: 15 min Patient Chief Complaint: "I feel down" Problems Identified/Issues Discussed: The patient was seen, chart reviewed, and case discussed with staff. The patient had no events overnight. He reports poor sleep last night. He reports improvement in his mood. Staff reports that he was previously irritable and loud, but he denies this. He reports auditory hallucinations that are worsening. He reports he was previously taking lithium and Seroquel, medications and treatment plan discussed. He reports continued improvement in his withdrawal symptoms. He shows increased socialization and attends group activities. The patient is taking medications and denies any side effects. Symptoms are improving but needs more time to stabilize. After care discussed, support and psychoeducation given. Medication Change: No Medical Record Reviewed: Yes Mental Status Examination - Cognitive Function Orientation: Person, Place, Situation, Time Memory: Intact Attention: WNL Concentration: Poor Association: Loose Fund of Knowledge: WNL - Mood Mood: Depressed, Anxious - Affect Affect: Constricted - Speech Speech: Loud - Formal Thought Process Formal Thought Process: Paranoia - Suicidal Ideation Suicidal Ideation: No - Homicidal Ideation Homicidal Ideation: No Goal/Treatment Plan - Goal/Treatment Plan Need for Continued Stay: Severe depression anxiety, Discharge may exacerbated symptoms, Severe functional impairment Progress Toward Problem(s) and Goals/Treatment Plan: 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
--- NOTE | 2017-06-21 11:08 | PCM.BM ---
<Gisele Linares - Last Filed: 06/21/17 11:08> Treatment Plan Problems - Problems identified on initial assessmt Auditory Hallucinations Date Initiated: 06/10/17 Time Initiated: 22:35 Assessment reference: NA Status: Active Suicidal Behavior Date Initiated: 06/10/17 Time Initiated: 22:35 Assessment reference: NA Status: Monitor Treatment assets and liabiliti Patient Assests: insightful, ADL independent, physically healthy, good support system, negotiates basic needs Patient Liabilities: substance abuse (Cocaine, Heroin, Xanax, ETOH) - Milieu Protocol Maintain good personal hygiene: daily Encourage regular showers, daily Remind patient to perform daily oral care Conduct patient checks and document Observation sheet: Q15 minutes Maintain personal safety: every shift Educate patient to report safety concerns to staff, every shift Monitor environment for contraband/sharps Medication safety: Monitor for expected outcome, potential side effects: every shift, Assess barriers to learning: every shift, Assess readiness for medication education: every shift Milieu Narrative: 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 CBT Psychoeducation Supportive therapy, group therapy, individual therapy Summerset 300 gm PO TID Seroquel 300 mg by mouth HS Cocaine use disorder moderate Monitor signs and symptoms Use [place] for abstinence Opioid use disorder severe CBT Psychoeducation Supportive therapy, individual therapy Use [place] for abstinence Opioid withdrawal CBT Psychoeducation Supportive therapy, individual therapy Clonidine when necessary methadone taper Family Contact Family involvement: Famliy/SO not involved - Goals for Treatment Patient goals for treatment: "I want to go to rehab." Discharge/Continuing Care - Education Needs Education Needs: Patient Medication, Patient Coping Skills - Discharge Discharge Criteria: Tolerates medication w/o severe side effects, Free of Suicidal thoughts Discharge to:: Substance Abuse Rehab - Treatment Team Participation Patient/Family/SO Statement: 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 CBT Psychoeducation Supportive therapy, group therapy, individual therapy Summerset 300 gm PO TID Seroquel 300 mg by mouth HS Cocaine use disorder moderate Monitor signs and symptoms Use NJ for abstinence Opioid use disorder severe CBT Psychoeducation Supportive therapy, individual therapy Use NJ for abstinence Opioid withdrawal CBT Psychoeducation Supportive therapy, individual therapy Clonidine when necessary methadone taper Discussed with Family/SO: No Was Patient/Family/SO present at Treatment Team Meeting: Yes Treatment Plan Review - Problem Auditory Hallucinations Time Initiated: 22:35 Suicidal Behavior Time Initiated: 22:35 - Discharge / Continuing Care Discharge to:: Home, With Family Behavioral Health Services: Outpatient therapy Health Needs: Medications/Rx, Alcohol/Drug treatment <Carlo Banks - Last Filed: 06/21/17 11:09> - Diagnosis (1) Bipolar 1 disorder, mixed, severe Status: Acute Interventions: 06/21/17 11:10 * Assess/adjust medications daily and /or as needed * See patient on an individual basis 7x/week to assess level of manic behaviors and stability * Discuss risks, benefits, side effects and alternatives of medications * (2) Opioid use disorder, severe, dependence Status: Acute Interventions: 06/21/17 11:10 * Assess 7x/week regarding severity of withdrawal * Educate regarding risks, benefits, side effects and alternatives of medications * Use Motivational Interviewing for abstinence * Use CBT for relapse prevention * Medication management for withdrawal symptoms * Encourage medication assisted treatment * <Gloria Ruiz - Last Filed: 06/21/17 13:34> Treatment Plan Review - Problem Auditory Hallucinations Date Initiated: 06/21/17 Time Initiated: 13:33 Progress toward outcomes: improved Suicidal Behavior Date Initiated: 06/21/17 Time Initiated: 13:34 Progress toward outcomes: improved
[2017-06-22 07:46] VITALS: BP 102/66; PULSE 68; RESP 20; TEMP 97.6; O2SAT 98
--- NOTE | 2017-06-22 10:45 | PCM.PYCHDC ---
Mental Status Examination - Mental Status Examination Orientation: Person, Place, Situation, Time Memory: Intact Mood: Neutral Affect: Constricted Speech: Soft Attention: WNL Concentration: WNL Association: WNL Fund of Knowledge: WNL Formal Thought Process: No Impairment Description of patient's judgement and insight: good, fair Psychotic Thoughts and Behaviors: denies any AVH Suicidal Ideation: No Current Homicidal Ideation?: No Discharge Summary - Discharge Note Reason for Hospitalization: The pt is a 36 yr old male who was brought to ED by his sister due to hearing voices telling the pt to harm himself and the pt having SI to hang himself for the past 2 months. The pt has h/o multiple inpatient psych admissions last discharged from [facility] ([facility] approximately 2 months ago for attempted suicide by hanging. The pt was prescribed the following medications upon discharge, Towaoc, 1200mg, Seroquel, 600, mg, and Trazadone, 100mg which the pt reports not being compliant. As per the pt he was also admitted psychiatrically in 2013 in a hospital in [place] for walking into ongoing traffic attempting elf harm. The pt was discharged and non-complaint with taking his medication. Pt reports that he relapsed on heroin and cocaine soon after discharge. Patient reports of withdrawal symptoms including sweating, headaches, anxiety, nausea and cramps. He reports depressed mood and feelings of hopelessness and helplessness. He also reports racing of thoughts and flight of ideas. Patient denies any auditory or visual hallucinations or any psychotic symptoms. Consultations:: List each consultation separately and include: 1. Reason for request. 2. Findings. 3. Follow-up Summary of Hospital Course include:: 1. Description of specific treatment plan utilized for patients during their course of treatmen. 2. Summarize the time- course for resolution of acute symptoms and/or regressed behaviors. 3. Describe issues identified and worked on during hospitalization. 4. Describe medication utilized. 5. Describe medical problems identified and treated. 6. Reassessment of suicide risk Summary of Hospital Course: The pt is a 36 yr old male who was brought to ED by his sister due to hearing voices telling the pt to harm himself and the pt having SI to hang himself for the past 2 months. The pt has h/o multiple inpatient psych admissions last discharged from [facility] ([facility] approximately 2 months ago for attempted suicide by hanging. The pt was prescribed the following medications upon discharge, Towaoc, 1200mg, Seroquel, 600, mg, and Trazadone, 100mg which the pt reports not being compliant. As per the pt he was also admitted psychiatrically in 2013 in a hospital in [place] for walking into ongoing traffic attempting elf harm. The pt was discharged and non-complaint with taking his medication. Pt reports that he relapsed on heroin and cocaine soon after discharge. Patient reports of withdrawal symptoms including sweating, headaches, anxiety, nausea and cramps. He reports depressed mood and feelings of hopelessness and helplessness. He also reports racing of thoughts and flight of ideas. Patient denies any auditory or visual hallucinations or any psychotic symptoms. PMH: none reported - Diagnosis (1) Bipolar 1 disorder, mixed, severe Current Visit: Yes Status: Acute (2) Opioid use disorder, severe, dependence Current Visit: Yes Status: Acute - Final Diagnosis (DSM 5) Condition upon Discharge: GOOD Disposition: HOME/ ROUTINE Follow-up Treatment Plan: 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 CBT Psychoeducation Supportive therapy, group therapy, individual therapy Towaoc 300 gm PO TID Seroquel 300 mg by mouth HS Cocaine use disorder moderate Monitor signs and symptoms Use ND for abstinence Opioid use disorder severe CBT Psychoeducation Supportive therapy, individual therapy Use ND for abstinence Opioid withdrawal CBT Psychoeducation Supportive therapy, individual therapy Clonidine when necessary methadone taper Prescriptions/Medication Reconciliation: Towaoc Carbonate [Towaoc Carbonate 300MG] 600 mg PO HS #30 cap QUEtiapine [SEROquel] 400 mg PO HS #30 tab Sertraline [Zoloft] 50 mg PO DAILY #30 tab
== END 2017-06-22 11:29 | disposition home or self-care (01) | DRG 744 ==
LOC: C.ER 17:26 → C.9E 21:37 → C.5E 22:40
PROVIDERS: ADMIT Psychiatry & Neurology Psychiatry; ATTEND Psychiatry & Neurology Psychiatry
PROC: HZ2ZZZZ Detoxification Services for Substance Abuse Treatment (ICD-10-PCS; principal; 2017-06-10)
PROC: GZ56ZZZ Individual Psychotherapy, Supportive (ICD-10-PCS; 2017-06-10)
DX: F11.23 Opioid dependence with withdrawal (principal); F31.64 Bipolar disorder, current episode mixed, severe, with psychotic features; F22 Delusional disorders; F10.10 Alcohol abuse, uncomplicated; E78.5 Hyperlipidemia, unspecified; F14.10 Cocaine abuse, uncomplicated; F19.10 Other psychoactive substance abuse, uncomplicated; F41.9 Anxiety disorder, unspecified; F34.0 Cyclothymic disorder

== ENCOUNTER 2017-08-31 23:30 | Inpatient (IN) | payer MEDICAID, OTHER ==
[2017-08-31 23:56] VITALS: O2SAT 98
--- NOTE | 2017-09-01 00:30 | C.PDOC ---
History Of Present Illness Patient presents to the ER stating he feels depressed and wants to kill himself. He states the feeling has been worsening over the past week. Denies physical complaints at this time. Time Seen by Provider: 09/01/17 00:30 Chief Complaint (Nursing): Psychiatric Evaluation History Per: Patient History/Exam Limitations: no limitations Onset/Duration Of Symptoms: Days Current Symptoms Are (Timing): Still Present Suicide/Self Injury Attempted (Context): None Modifying Factor(s): None Severity: None Pain Scale Rating Of: 0 Associated Symptoms: Depression, Suicidal Thoughts Involuntary Hold By: None Recent travel outside of the [place]: No Additional History Per: Patient Past Medical History Reviewed: Historical Data, Nursing Documentation, Vital Signs Vital Signs: Last Vital Signs Temp 99 F 08/31/17 23:52 Pulse 85 08/31/17 23:52 Resp 20 08/31/17 23:52 BP 123/80 08/31/17 23:52 Pulse Ox 98 09/01/17 01:31 - Medical History PMH: Anxiety, Bipolar Disorder, Depression, Hyperthyroidism, Schizophrenia - [facility] Procedures DETOXIFICATION SERVICES FOR SUBSTANCE ABUSE TREATMENT (06/10/17) GROUP PSYCHOTHERAPY (04/15/17) INDIVIDUAL PSYCHOTHERAPY, SUPPORTIVE (06/10/17) MEDICATION MANAGEMENT (04/15/17) PHARMACOTHERAPY FOR SUBSTANCE ABUSE, NICOTINE REPLACE (04/15/17) Family History: States: No Known Family Hx - Social History Hx Alcohol Use: Yes Hx Substance Use: Yes (cocaine, heroine) - Immunization History Hx Tetanus Toxoid Vaccination: No Hx Influenza Vaccination: Yes Hx Pneumococcal Vaccination: No Review Of Systems Constitutional: Negative for: Fever, Chills Cardiovascular: Negative for: Chest Pain Gastrointestinal: Negative for: Nausea, Vomiting, Diarrhea Genitourinary: Negative for: Dysuria Musculoskeletal: Negative for: Back Pain Skin: Negative for: Rash Neurological: Negative for: Weakness Psych: Positive for: Depression, Suicidal ideation Physical Exam - Physical Exam Appears: Non-toxic, No Acute Distress, Other (Depressed affect) Skin: Warm, Dry Head: Normacephalic Eye(s): bilateral: Normal Inspection Oral Mucosa: Moist Neck: Supple Chest: Symmetrical, No Tenderness Cardiovascular: Rhythm Regular Respiratory: No Rales, No Rhonchi, No Wheezing Gastrointestinal/Abdominal: Soft, No Tenderness Back: Normal Inspection Extremity: Normal ROM Extremity: Bilateral: Atraumatic Pulses: Left Dorsalis Pedis: Normal, Right Dorsalis Pedis: Normal Neurological/Psych: Oriented x3 Gait: Steady ED Course And Treatment - Laboratory Results Result Diagrams: 09/01/17 00:39 09/01/17 00:39 O2 Sat by Pulse Oximetry: 98 (room air) Pulse Ox Interpretation: Normal Progress Note: Blood work and urinalysis ordered. Disposition Discussed With DrSofi: Luis Santiago Comment: accepted the pt on his service and took over the care at 1:30 AM Doctor Will See Patient In The: Hospital Counseled Patient/Family Regarding: Studies Performed, Diagnosis - Disposition Disposition: HOSPITALIZED Disposition Time: 00:30 Condition: FAIR Forms: [facility] (Malaysian) - POA Present On Arrival: None - Clinical Impression Clinical Impression: Depression, Opioid abuse, Cocaine abuse - Scribe Statement The provider has reviewed the documentation as recorded by the Scribe Tip Huizar All medical record entries made by the Scribe were at my direction and personally dictated by me. I have reviewed the chart and agree that the record accurately reflects my personal performance of the history, physical exam, medical decision making, and the department course for this patient. I have also personally directed, reviewed, and agree with the discharge instructions and disposition. Decision To Admit - Pt Status Changed To: Hospital Disposition Of: Inpatient - Admit Certification Admit to Inpatient:: After my assessment, the patient will require hospitalization for at least two midnights. This is because of the severity of symptoms shown, intensity of services needed, and/or the medical risk in this patient being treated as an outpatient. - InPatient: Physician Admission Certification: I certify that this patient requires 2 or more midnights of care for the following reason:: After my assessment, the patient will require hospitalization for at least two midnights. This is because of the severity of symptoms shown, intensity of services needed, and/or the medical risk in this patient being treated as an outpatient. - . Bed Request Type: Psychiatry Patient Diagnosis: Depression, Opioid abuse, Cocaine abuse
[2017-09-01 00:43] LABS: BASO % 0.4 % (0.0-2.0); EOS # 0.1 K/uL (0.0-0.7); EOS % 0.6 % (0.0-4.0); HEMOGLOBIN 12.5 g/dL (12.0-18.0); LYMPH # 1.5 K/uL (1.0-4.3); MEAN CELL VOLUME 73.6 fL (80.0-94.0); MEAN CORPUSCULAR HEMOGLOBIN 24.4 pg (27.0-31.0); MEAN CORPUSCULAR HGB CONC 33.2 g/dL (33.0-37.0); MEAN PLATELET VOLUME 7.6 fL (7.2-11.7); MONO # 0.6 K/uL (0.0-0.8); MONO % 5.8 % (0.0-10.0); NEUT # 7.8 K/uL (1.8-7.0); NEUT % 78.2 % (50.0-75.0); RBC 5.1 Mil/uL (4.40-5.90); RED CELL DISTRIBUTION WIDTH 15.9 % (11.5-14.5); WHITE BLOOD COUNT 9.9 K/uL (4.8-10.8)
[2017-09-01 00:48] LABS: SQUAMOUS EPITHIAL < 1 /hpf (0-5); URINE BILIRUBIN NEGATIVE (NEGATIVE); URINE BLOOD NEGATIVE (NEGATIVE); URINE CLARITY Hazy (Clear); URINE COLOR Yellow (YELLOW); URINE GLUCOSE (UA) NORMAL (Normal); URINE LEUKOCYTE ESTERASE NEG Leu/uL (Negative); URINE NITRATE NEGATIVE (NEGATIVE); URINE PROTEIN 1+ mg/dL (NEGATIVE); URINE UROBILINOGEN NORMAL mg/dL (0.2-1.0)
[2017-09-01 00:50] LABS: BARBITURATES, UR NEGATIVE (NEGATIVE); BENZODIAZEPINES, UR NEGATIVE (NEGATIVE); PHENCYCLIDINE, UR NEGATIVE (NEGATIVE)
[2017-09-01 00:55] LABS: ALBUMIN 4.1 g/dL (3.5-5.0); ALT/SGPT 43 U/L (21-72); AST/SGOT 33 U/L (17-59); BLOOD UREA NITROGEN 15 mg/dL (9-20); CALCIUM 9.1 mg/dl (8.6-10.4); GFR AFRICAN-AMERICAN > 60; GFR NON-AFRICAN AMERICAN > 60
[2017-09-01 01:00] LABS: OPIATES, UR POSITIVE (NEGATIVE)
--- NOTE | 2017-09-01 02:49 | PCM.BM ---
<Tree Chappell - Last Filed: 09/01/17 02:46> Treatment Plan Problems - Problems identified on initial assessmt Depression Date Initiated: 09/01/17 Time Initiated: 02:15 Assessment reference: NA Status: Active Suicidal Ideation Date Initiated: 09/01/17 Time Initiated: 02:15 Assessment reference: NA Status: Active Substance Abuse Date Initiated: 09/01/17 Time Initiated: 02:15 Assessment reference: NA Status: Active Treatment assets and liabiliti Patient Assests: cooperative, insightful, self-reliant, ADL independent, good support system, negotiates basic needs Patient Liabilities: substance abuse, medical problems, legal issue - Milieu Protocol Maintain good personal hygiene: daily Encourage regular showers, daily Remind patient to perform daily oral care, daily Assist patient to perform ADL's Maintain personal safety: every shift Educate patient to report safety concerns to staff, every shift Monitor environment for contraband/sharps Medication safety: Monitor for expected outcome, potential side effects: every shift, Assess barriers to learning: every shift, Assess readiness for medication education: every shift <Gisele Linares - Last Filed: 09/01/17 10:45> Family Contact Family involvement: Family/SO is involved Family contact: Patient declines to allow family contact at present - Goals for Treatment Patient goals for treatment: "I want to go to rehab." Discharge/Continuing Care - Education Needs Education Needs: Patient Medication, Patient Coping Skills, Patient Placement options, Patient Community resources - Discharge Discharge Criteria: Tolerates medication w/o severe side effects, No longer exhibiting s/s of withdrawal Discharge to:: Substance Abuse Rehab - Treatment Team Participation Discussed with Family/SO: No Was Patient/Family/SO present at Treatment Team Meeting: Yes <Carlo Banks - Last Filed: 09/01/17 10:53> - Diagnosis (1) Bipolar 1 disorder, mixed, severe Status: Acute Interventions: 09/01/17 10:52 * Assess/adjust medications daily and /or as needed * See patient on an individual basis 7x/week to assess level of manic behaviors and stability * Discuss risks, benefits, side effects and alternatives of medications * (2) Opioid use disorder, severe, dependence Status: Acute Interventions: 09/01/17 10:53 * Assess 7x/week regarding severity of withdrawal * Educate regarding risks, benefits, side effects and alternatives of medications * Use Motivational Interviewing for abstinence * Use CBT for relapse prevention * Medication management for withdrawal symptoms * Encourage medication assisted treatment *
--- NOTE | 2017-09-01 10:45 | PCM.PSYCH ---
Initial Psychiatric Evaluation - Initial Psychiatric Evaluation Type of Admission: Voluntary Legal Status: Capacity Chief Complaint (in patient's own words): "I feel down" History of Present Illness and Precipitating Events: The patient is a 37 year old single male. 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 The patient reports that he stopped taking his Seroquel, [place], and Zoloft 2 months ago and he has been feeling down. He reports that their is "a lot of stuff" happening at home which is making him feel "not good." He reports that he was brought to the hospital last night by his mother because he intended to commit suicide by hanging himself. He admits to two suicide attempts in the past : once in [place] where he tried to jump in front of cars but the cross tie turner stopped him and once in [place] when he tried to jump of a a low riky but ended up knocking himself out. He reports that he was diagnosed with Schizophrenia, Bipolar Disorder, and Depression in the past and that this is his third time on our unit. He reports shooting 10 bags of heroin and 10 bags of cocaine a day for the past 1.5 months. The first time he used these substances was when he was 18 years old and his longest time sober from them was for 5.5 years when he was in [place] and [place]. He reports that for the most part when he was in [place] and [place] he was just fine and had no issues because he was alone, but being back up here in "this house" with his family has made all these "crazy" things happen to him and is "stressful." He reports that he feels paranoid. He reports hearing voices telling him to hurt and kill himself, however, he denies ever cutting himself in the past and denies visual hallucinations. He also reports that he is withdrawing from heroin, reporting that his "stomach hurts", his "throat feels full", and that he is nauseous. Patient is requesting Ensure and Methadone. Psych Hx: Schizophrenia, Bipolar Disorder, Depression Detox Hx: twice Rehab Hx: 5 times Fam Psych Hx: Uncle committed in [place] with Schizophrenia, Sister with bipolar disorder and depression. Medical Hx: Hypothyroidism (untreated), Hep C positive Allergies: denies Plan: Patient would like to go to short term inpatient rehab, "not longer than 90 days." Patient is alert, awake, and oriented. Patient appears groomed but undernourished. Patient is cooperative and maintains eye contact during encounter. Patient speaks in a clear voice with appropriate tone and responds to questions in a linear fashion. His mood is depressed and affect is flat and sad. The patient has insight to his situation and remains concentrated and attentive during the encounter. Current Medications: Active Medications Generic Name Dose Route Start Last Admin Trade Name Freq PRN Reason Stop Dose Admin Al Hydrox/Mg Hydrox/Simethicone 30 ml 09/01/17 10:43 Maalox 30 Ml PO TID PRN Indigestion / Heartburn Clonidine HCl 0.1 mg 09/01/17 10:43 Catapres PO Q8 PRN COWS Score More or Equal to 5 Hydroxyzine HCl 25 mg 09/01/17 02:39 Atarax PO Q6 PRN Anxiety Loperamide HCl 2 mg 09/01/17 10:43 Imodium PO Q8 PRN Diarrhea Methadone HCl 20 mg 09/01/17 10:45 Methadone PO 09/01/17 10:46 ONCE ONE Nicotine 1 patch 09/01/17 10:45 Nicoderm Cq TD DAILY FESTUS Ondansetron HCl 4 mg 09/01/17 10:43 Zofran Tab PO Q8 PRN Nausea/Vomiting Pneumococcal Polyvalent Vaccine 0.5 ml 09/03/17 10:00 Pneumovax 23 Vaccine IM 09/03/17 10:01 .ONCE ONE Past Psychiatric History - Past Psychiatric History Previous Treatment History: Inpatient Pertinent Medical Hx (Current Medical&Sleep Prob, Allergies): Allergies Allergy/AdvReac Type Severity Reaction Status Date / Time No Known Allergies Allergy Verified 08/31/17 23:57 No Known Home Med 08/31/17 Review of Systems - Review of Systems All systems: reviewed and no additional remarkable complaints except - EENT Additional comments: "full throat" - Gastrointestinal Gastrointestinal: Abdominal Pain, Cramping, Nausea - Neurological Neurological: UNREMARKABLE - Psychiatric Psychiatric: Auditory Hallucinations, Depression, Hopelessness, Paranoia, Suicidal Ideation Mental Status Examination - Personal Presentation Personal Presentation: Looks older than stated age - Affect Affect: Constricted, Depressed - Motor Activity Motor Activity: Calm - Reliability in Providing Information Reliability in Providing Information: Good - Speech Speech: Organized - Mood Mood: Depressed, Anxious - Formal Thought Process Formal Thought Process: Hallucinations, Paranoia - Hallucinations/Delusions Hallucinations: Auditory - Obsessions/Compulsions Obsessions: None Compulsions: None - Cognitive Functions Orientation: Person, Place, Situation, Time Sensorium: Alert Attention/Concentration: Attentive Abstract Thinking: [place] Estimate of Intelligence: Below average Judgement: Imparied, as evidence by: Poor judgement, Imparied, as evidence by: Lack of insight into illness Memory: Recent intact, as evidence by: Ability to recall events of the day, Remote intact, as evidenced by: Abilit to recall sig. life events - Risk Risk: Suicidal, Withdrawal, Diminished functioning - Strength & Assets Inventory Strength & Assets Inventory: Family support, Employment status, Cooperative DSM 5 DX - DSM 5 DSM 5 Diagnosis: Bipolar I Disorder Depressed severe with psychotic features Opioid Use Disorder severe Opioid withdrawal Cocaine Use Disorder severe - Recommended/Plan of Treatment Treatment Recommendations and Plan of Treatment: Bipolar I Disorder Depressed severe with psychotic features -Attend group and activities -Individual therapy daily -Psychoeducation and support daily -Encourage compliance with meds and after care -Refer to inpatient program -Teach Healthy lifestyle methods, i.e. diet, exercise, meditation -[place] -Trazodone Opioid Use Disorder severe Opioid withdrawal -Attend group and activities -Individual therapy daily -Psychoeducation and support daily -Methadone Taper Cocaine Use Disorder severe -Attend group and activities -Individual therapy daily - Smoking Cessation Smoking Cessation Initiated: No
[2017-09-01] MEDS: Aluminum Hydroxide/Magnesium Hydroxide Susp (30 mL) PO PRN (14:01)
--- NOTE | 2017-09-02 12:33 | PCM.PYCHPN ---
Psychiatric Progress Note - Psychiatric Progress Note Patient seen today, length of contact: 16 min Patient Chief Complaint: "I feel down" Problems Identified/Issues Discussed: Patient reports that he is feeling the same as yesterday. He is requesting Seroquel because it worked for him in the past. He would also like A&D ointment for a cut on his left foot. The patient also reports that he would like something for anxiety. He says that he is eating less than usual but he is sleeping better. The patient reports that he still hears voices to hurt himself. He reports that he still has thoughts about committing suicide today But Im not going to do it. The patient requires more time to stabilize. Psychoeducation was given. Patient is alert, awake, and oriented. Patient is cooperative and maintains eye contact during encounter. Patient speaks in a clear voice with appropriate tone and responds to questions in a linear fashion. His mood is depressed and affect is flat and sad. The patient has insight to his situation and remains concentrated and attentive during the encounter. Medication Change: Yes (Start Seroquel) Medical Record Reviewed: Yes Mental Status Examination - Cognitive Function Orientation: Person, Place, Situation, Time Memory: Intact Attention: WNL Concentration: Poor Association: Loose Fund of Knowledge: Poor - Mood Mood: Depressed, Anxious - Affect Affect: Constricted, Depressed - Speech Speech: Appropriate - Formal Thought Process Formal Thought Process: Hallucinations, Paranoia - Suicidal Ideation Suicidal Ideation: Yes - Homicidal Ideation Homicidal Ideation: No Goal/Treatment Plan - Goal/Treatment Plan Need for Continued Stay: Severe depression anxiety, Discharge may exacerbated symptoms, Severe functional impairment Progress Toward Problem(s) and Goals/Treatment Plan: Bipolar I Disorder Depressed severe with psychotic features -Attend group and activities -Individual therapy daily -Psychoeducation and support daily -Encourage compliance with meds and after care -Refer to inpatient program -Teach Healthy lifestyle methods, i.e. diet, exercise, meditation -[place] -Trazodone -Start Seroquel Opioid Use Disorder severe Opioid withdrawal -Attend group and activities -Individual therapy daily -Psychoeducation and support daily -Methadone Taper Cocaine Use Disorder severe -Attend group and activities -Individual therapy daily - Smoking Cessation Smoking Cessation Initiated: No
[2017-09-02] MEDS ORDERED: Vitamins A & D Oint UD Foilpak TOP PRN (12:45)
[2017-09-03] MEDS ORDERED: Pneumococcal 23-Valent Vaccine IM ONE (10:00)
--- NOTE | 2017-09-04 10:10 | PCM.PYCHPN ---
Psychiatric Progress Note - Psychiatric Progress Note Patient seen today, length of contact: 16 min Patient Chief Complaint: "I feel down" Problems Identified/Issues Discussed: Patient seen and evaluated, chart reviewed and discussed with the staff. Pt remained depressed, isolated and withdrawn. He still reports AH. voices telling him to hurt himself. He still reports depressed mood, feelings of hoplessness and helplessness. He reports that he still has suicidal thoughts but contracts for safety. The patient has insight to his situation and remains concentrated and attentive during the encounter. The patient requires more time to stabilize. He is taking medications but denies any side effects. Psychoeducation was given. Medication Change: Yes (Increase Seroquel) Medical Record Reviewed: Yes Mental Status Examination - Cognitive Function Orientation: Person, Place, Situation, Time Memory: Intact Attention: WNL Concentration: Poor Association: Loose Fund of Knowledge: Poor - Mood Mood: Depressed, Anxious - Affect Affect: Constricted, Depressed - Speech Speech: Appropriate - Formal Thought Process Formal Thought Process: Hallucinations, Paranoia - Suicidal Ideation Suicidal Ideation: Yes - Homicidal Ideation Homicidal Ideation: No Goal/Treatment Plan - Goal/Treatment Plan Need for Continued Stay: Severe depression anxiety, Discharge may exacerbated symptoms, Severe functional impairment Progress Toward Problem(s) and Goals/Treatment Plan: Bipolar I Disorder Depressed severe with psychotic features -Attend group and activities -Individual therapy daily -Psychoeducation and support daily -Encourage compliance with meds and after care -Refer to inpatient program -Teach Healthy lifestyle methods, i.e. diet, exercise, meditation -[place] -Trazodone -Seroquel Opioid Use Disorder severe Opioid withdrawal -Attend group and activities -Individual therapy daily -Psychoeducation and support daily -Methadone Taper Cocaine Use Disorder severe -Attend group and activities -Individual therapy daily - Smoking Cessation Smoking Cessation Initiated: No
--- NOTE | 2017-09-04 13:19 | PCM.PYCHPN ---
Psychiatric Progress Note - Psychiatric Progress Note Patient seen today, length of contact: 16 min Patient Chief Complaint: "I'm OK" Problems Identified/Issues Discussed: The pt is seen, chart reviewed, case discussed with staff. Support given, CBT and [place] used briefly No new symptoms reported, improving slowly and needs more time No SEs from medications, risks discussed. After care discussed, he is now less interested in rehab Medication Change: No Medical Record Reviewed: Yes Mental Status Examination - Cognitive Function Orientation: Person, Place, Situation, Time Memory: Intact Attention: WNL Concentration: Poor Association: Loose Fund of Knowledge: Poor - Mood Mood: Depressed, Anxious - Affect Affect: Constricted, Depressed - Speech Speech: Appropriate - Formal Thought Process Formal Thought Process: No Impairment - Suicidal Ideation Suicidal Ideation: No - Homicidal Ideation Homicidal Ideation: No Goal/Treatment Plan - Goal/Treatment Plan Need for Continued Stay: Severe depression anxiety, Discharge may exacerbated symptoms, Severe functional impairment Progress Toward Problem(s) and Goals/Treatment Plan: Continue medications Support and psychoeducation daily Attend groups and activities daily After care planning by GIORGI
[2017-09-04] MEDS: Aluminum Hydroxide/Magnesium Hydroxide Susp (30 mL) PO PRN (18:20)
[2017-09-05 06:34] VITALS: RESP 20
[2017-09-05 08:27] LABS: BLOOD UREA NITROGEN 21 mg/dL (9-20); CALCIUM 8.9 mg/dl (8.6-10.4); GFR AFRICAN-AMERICAN > 60; GFR NON-AFRICAN AMERICAN > 60
--- NOTE | 2017-09-05 13:26 | PCM.PYCHPN ---
Psychiatric Progress Note - Psychiatric Progress Note Patient seen today, length of contact: 16 min Patient Chief Complaint: "I'm better" Problems Identified/Issues Discussed: The pt is seen, chart reviewed, case discussed with staff. Support given, CBT and [place] used briefly No new symptoms reported, improving slowly and needs more time No SEs from medications, risks discussed. His Li is <0.2, practically zero, ut he denies non-compliance ie cheeking He agreed to dc it and cont with seroquel Also, he put in a 48 hr notice, until tomorrow noon Medication Change: Yes (Increase Seroquel) Medical Record Reviewed: Yes Mental Status Examination - Cognitive Function Orientation: Person, Place, Situation, Time Memory: Intact Attention: WNL Concentration: Poor Association: Loose Fund of Knowledge: Poor - Mood Mood: Depressed, Anxious - Affect Affect: Constricted, Depressed - Speech Speech: Appropriate - Formal Thought Process Formal Thought Process: Hallucinations, Paranoia - Suicidal Ideation Suicidal Ideation: Yes - Homicidal Ideation Homicidal Ideation: No Goal/Treatment Plan - Goal/Treatment Plan Need for Continued Stay: Severe depression anxiety, Discharge may exacerbated symptoms, Severe functional impairment Progress Toward Problem(s) and Goals/Treatment Plan: Continue medications Support and psychoeducation daily Attend groups and activities daily After care planning by GIORGI
[2017-09-05] MEDS: Aluminum Hydroxide/Magnesium Hydroxide Susp (30 mL) PO PRN (17:36)
[2017-09-06 06:33] VITALS: BP 100/63; PULSE 61; TEMP 98.2
[2017-09-06] MEDS: Aluminum Hydroxide/Magnesium Hydroxide Susp (30 mL) PO PRN (10:20)
--- NOTE | 2017-09-06 11:25 | PCM.PYCHDC ---
Mental Status Examination - Mental Status Examination Orientation: Person, Place, Situation, Time Memory: Intact Mood: Neutral Affect: Constricted Speech: Soft Attention: WNL Concentration: WNL Association: WNL Fund of Knowledge: WNL Formal Thought Process: No Impairment Description of patient's judgement and insight: good, fair Psychotic Thoughts and Behaviors: Denies any AVH Suicidal Ideation: No Current Homicidal Ideation?: No Discharge Summary - Discharge Note Reason for Hospitalization: The patient is a 37 year old single male. 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 The patient reports that he stopped taking his Seroquel, Cassoday, and Zoloft 2 months ago and he has been feeling down. He reports that their is "a lot of stuff" happening at home which is making him feel "not good." He reports that he was brought to the hospital last night by his mother because he intended to commit suicide by hanging himself. He admits to two suicide attempts in the past : once in [place] where he tried to jump in front of cars but the noodle catalyst maker stopped him and once in [place] when he tried to jump of a a low riky but ended up knocking himself out. He reports that he was diagnosed with Schizophrenia, Bipolar Disorder, and Depression in the past and that this is his third time on our unit. He reports shooting 10 bags of heroin and 10 bags of cocaine a day for the past 1.5 months. The first time he used these substances was when he was 18 years old and his longest time sober from them was for 5.[address] he was in [facility]. He reports that for the most part when he was in [place] and [place] he was just fine and had no issues because he was alone, but being back up here in "this house" with his family has made all these "crazy" things happen to him and is "stressful." He reports that he feels paranoid. He reports hearing voices telling him to hurt and kill himself, however, he denies ever cutting himself in the past and denies visual hallucinations. He also reports that he is withdrawing from heroin, reporting that his "stomach hurts", his "throat feels full", and that he is nauseous. Patient is requesting Ensure and Methadone. Consultations:: List each consultation separately and include: 1. Reason for request. 2. Findings. 3. Follow-up Summary of Hospital Course include:: 1. Description of specific treatment plan utilized for patients during their course of treatmen. 2. Summarize the time- course for resolution of acute symptoms and/or regressed behaviors. 3. Describe issues identified and worked on during hospitalization. 4. Describe medication utilized. 5. Describe medical problems identified and treated. 6. Reassessment of suicide risk Summary of Hospital Course: During the course of his stay, patient (pt) started progressively improving and he no longer remained irritable, depressed, paranoid and suicidal. His mood was improved and he started attending groups and meetings and started socializing. Patient denied any feelings of hopelessness, helplessness, and worthlessness, denied any problem with the sleep or appetite, denied suicidal ideation or homicidal ideation. Pt denied any auditory or visual hallucinations. He denied any withdrawal symptoms. Some changes were made in his current medications and patient was discharged on following medications. He tolerated these medications very well and denied any side effects. CBT and [place] were used. Pt signed 48 hour notice, which expires today. Pt is to follow-up with [facility]. - Diagnosis (1) Bipolar 1 disorder, mixed, severe Status: Acute (2) Opioid use disorder, severe, dependence Status: Acute - Final Diagnosis (DSM 5) Condition upon Discharge: FAIR DSM 5: Bipolar I Disorder Depressed severe with psychotic features Opioid Use Disorder severe Opioid withdrawal Cocaine Use Disorder severe Disposition: HOME/ ROUTINE Follow-up Treatment Plan: Education: Pt was educated and counseled about the risks and benefits of taking and not taking medications. Pt was educated and counseled about the risks of drinking and abusing drugs. Pt was educated and counseled to go to the ER or call 911 if pt develop suicidal ideation or homicidal ideation, worsening of symptoms or severe side effects of the meds. Prescriptions/Medication Reconciliation: QUEtiapine [SEROquel] 400 mg PO HS #30 tab traZODone [Desyrel] 50 mg PO HS PRN #30 tab PRN Reason: Insomnia - Smoking Cessation Smoking Cessation Medication prescribed: No - Antipsychotic Medications Pt discharged on 2 or more routine antipsychotic medications: No
== END 2017-09-06 11:25 | disposition home or self-care (01) | DRG 430 ==
LOC: C.ER 23:30 → C.5E 09-01 01:28
PROC: GZ3ZZZZ Medication Management (ICD-10-PCS; principal; 2017-09-01)
PROC: GZHZZZZ Group Psychotherapy (ICD-10-PCS; 2017-09-01)
PROC: GZ56ZZZ Individual Psychotherapy, Supportive (ICD-10-PCS; 2017-09-01)
PROC: HZ2ZZZZ Detoxification Services for Substance Abuse Treatment (ICD-10-PCS; 2017-09-01)
PROC: HZ56ZZZ Individual Psychotherapy for Substance Abuse Treatment, Psychoeducation (ICD-10-PCS; 2017-09-01)
PROC: HZ59ZZZ Individual Psychotherapy for Substance Abuse Treatment, Supportive (ICD-10-PCS; 2017-09-01)
PROC: HZ46ZZZ Group Counseling for Substance Abuse Treatment, Psychoeducation (ICD-10-PCS; 2017-09-01)
DX: F31.64 Bipolar disorder, current episode mixed, severe, with psychotic features (principal); F11.23 Opioid dependence with withdrawal; F14.20 Cocaine dependence, uncomplicated; R45.851 Suicidal ideations; B18.2 Chronic viral hepatitis C; F20.9 Schizophrenia, unspecified; E03.9 Hypothyroidism, unspecified; F17.210 Nicotine dependence, cigarettes, uncomplicated; Z91.5 Personal history of self-harm; Z81.8 Family history of other mental and behavioral disorders

== ENCOUNTER 2017-09-18 04:16 | Emergency (ER) | payer MEDICAID, OTHER ==
--- NOTE | 2017-09-18 05:10 | C.PDOC ---
History Of Present Illness Patient is a 37 y/o male, with a Hx of depression and schizoaffective disorder, who presents to the ED with complaints of depression, SI, and heroin abuse. Patient denies any fever or chills. No other physical complaints at this time. Time Seen by Provider: 09/18/17 05:08 Chief Complaint (Nursing): Substance Abuse History Per: Patient History/Exam Limitations: no limitations Current Symptoms Are (Timing): Still Present Suicide/Self Injury Attempted (Context): Cut Wrists (questionable) Modifying Factor(s): Narcotics (heroin use) Severity: Mild Pain Scale Rating Of: 2 Associated Symptoms: Depression, Suicidal Thoughts, Suicidal Plan (questionable) Recent travel outside of the [place]: No Past Medical History Reviewed: Historical Data, Nursing Documentation, Vital Signs Vital Signs: Last Vital Signs Temp 98.3 F 09/18/17 04:36 Pulse 80 09/18/17 04:36 Resp 20 09/18/17 04:36 BP 106/73 09/18/17 04:36 Pulse Ox 97 09/18/17 05:30 - Medical History PMH: Anxiety, Bipolar Disorder, Depression, Hyperthyroidism (no meds taken), Schizophrenia Denies: Diabetes, Hepatitis, HIV, HTN, Seizures, Sexually Transmitted Disease Surgical History: No Surg Hx - [facility] Procedures DETOXIFICATION SERVICES FOR SUBSTANCE ABUSE TREATMENT (09/01/17) GROUP HOME CARE NURSE FOR SUBSTANCE ABUSE TREATMENT, PSYCHOEDUCATION (09/01/17) GROUP PSYCHOTHERAPY (09/01/17) INDIV PSYCHOTHERAPY FOR SUBSTANCE ABUSE TREATMENT, SUPPORT (09/01/17) INDIV PSYCHOTHERAPY FOR SUBSTANCE ABUSE, PSYCHOEDUCATION (09/01/17) INDIVIDUAL PSYCHOTHERAPY, SUPPORTIVE (09/01/17) MEDICATION MANAGEMENT (09/01/17) PHARMACOTHERAPY FOR SUBSTANCE ABUSE, NICOTINE REPLACE (04/15/17) Family History: States: No Known Family Hx - Social History Hx Tobacco Use: No Hx Alcohol Use: Yes (occasional) Hx Substance Use: Yes - Immunization History Hx Tetanus Toxoid Vaccination: No (not up to date) Hx Influenza Vaccination: Yes Hx Pneumococcal Vaccination: No Review Of Systems Constitutional: Negative for: Fever, Chills Neurological: Positive for: Other (heroin abuse) Psych: Positive for: Depression, Suicidal ideation Physical Exam - Physical Exam Appears: Non-toxic, No Acute Distress Skin: Other (small abrasion on left wrist) Head: Normacephalic Eye(s): bilateral: Normal Inspection Oral Mucosa: Moist Chest: Symmetrical Cardiovascular: Rhythm Regular, No Murmur Respiratory: No Accessory Muscle Use, No Rales, No Rhonchi, No Wheezing ED Course And Treatment - Laboratory Results Result Diagrams: 09/18/17 05:11 09/18/17 05:11 O2 Sat by Pulse Oximetry: 97 Progress Note: Blood work ordered. Crisis notified; patient is currently 1:1. Disposition Counseled Patient/Family Regarding: Studies Performed, Diagnosis - Disposition Disposition Time: 05:10 Condition: FAIR Forms: [facility] (Kiswahili) - Clinical Impression Clinical Impression: Opioid abuse, Cocaine abuse, Depression - Scribe Statement The provider has reviewed the documentation as recorded by the Scribe Danni Judge All medical record entries made by the Scribe were at my direction and personally dictated by me. I have reviewed the chart and agree that the record accurately reflects my personal performance of the history, physical exam, medical decision making, and the department course for this patient. I have also personally directed, reviewed, and agree with the discharge instructions and disposition. Physician Patient Turnover Patient Signed Over To: Benjamin Hahn DO Handoff Comments: pending crisis eval and disposition
[2017-09-18 05:15] LABS: BASO # 0.1 K/uL (0.0-0.2); BASO % 0.6 % (0.0-2.0); EOS # 0.3 K/uL (0.0-0.7); HEMOGLOBIN 10.8 g/dL (12.0-18.0); LYMPH # 2.2 K/uL (1.0-4.3); LYMPH % 25.8 % (20.0-40.0); MEAN CELL VOLUME 73.6 fL (80.0-94.0); MEAN CORPUSCULAR HEMOGLOBIN 24.1 pg (27.0-31.0); MEAN CORPUSCULAR HGB CONC 32.8 g/dL (33.0-37.0); MONO # 0.5 K/uL (0.0-0.8); MONO % 5.6 % (0.0-10.0); NEUT # 5.4 K/uL (1.8-7.0); RBC 4.46 Mil/uL (4.40-5.90); RED CELL DISTRIBUTION WIDTH 15.6 % (11.5-14.5); WHITE BLOOD COUNT 8.3 K/uL (4.8-10.8)
[2017-09-18 05:21] LABS: URINE BACTERIA RARE (<OCC); URINE BILIRUBIN NEGATIVE (NEGATIVE); URINE BLOOD NEGATIVE (NEGATIVE); URINE CLARITY Clear (Clear); URINE COLOR Yellow (YELLOW); URINE GLUCOSE (UA) NORMAL (Normal); URINE HYALINE CAST 0-2 /lpf (0-2); URINE LEUKOCYTE ESTERASE NEG Leu/uL (Negative); URINE NITRATE NEGATIVE (NEGATIVE); URINE PROTEIN NEGATIVE (NEGATIVE)
[2017-09-18 05:31] LABS: BARBITURATES, UR NEGATIVE (NEGATIVE); PHENCYCLIDINE, UR NEGATIVE (NEGATIVE)
[2017-09-18 05:35] LABS: ALBUMIN 3.4 g/dL (3.5-5.0); ALT/SGPT 51 U/L (21-72); AST/SGOT 57 U/L (17-59); BLOOD UREA NITROGEN 15 mg/dL (9-20); CALCIUM 8.5 mg/dl (8.6-10.4); GFR AFRICAN-AMERICAN > 60; GFR NON-AFRICAN AMERICAN > 60
[2017-09-18 05:52] LABS: BENZODIAZEPINES, UR POSITIVE (NEGATIVE); OPIATES, UR POSITIVE (NEGATIVE)
[2017-09-18 08:29] VITALS: BP 122/81; PULSE 65; RESP 18; TEMP 98.2; O2SAT 100
== END 2017-09-18 08:56 | disposition home or self-care (01) ==
LOC: C.ER 04:16
DX: F11.10 Opioid abuse, uncomplicated (principal); F14.10 Cocaine abuse, uncomplicated; F32.9 Major depressive disorder, single episode, unspecified

== ENCOUNTER 2018-09-21 20:58 | Inpatient (IN) | payer MEDICAID, OTHER ==
--- NOTE | 2018-09-21 22:27 | C.PDOC ---
History Of Present Illness 38 year old male presents to the ED complaining of SI. Reports he attempted to hang himself with a sheet but the sheet broke causing him to fall down and hit his left ankle. Also complains of left ankle pain. Patient is actively suicidal. Denies any HI. Chief Complaint (Nursing): Psychiatric Evaluation Past Medical History Vital Signs: Last Vital Signs Temp 99.6 F 09/21/18 21:45 Pulse 96 H 09/21/18 21:45 Resp 20 09/21/18 21:45 BP 129/80 09/21/18 21:45 Pulse Ox 99 09/21/18 21:45 - Medical History PMH: Anxiety, Bipolar Disorder, Depression, Hyperthyroidism (no meds taken), Schizophrenia Denies: Diabetes, Hepatitis, HIV, HTN, Seizures, Sexually Transmitted Disease - [facility] Procedures DETOXIFICATION SERVICES FOR SUBSTANCE ABUSE TREATMENT (09/01/17) GROUP PROPAGATION MANAGER FOR SUBSTANCE ABUSE TREATMENT, PSYCHOEDUCATION (09/01/17) GROUP PSYCHOTHERAPY (09/01/17) INDIV PSYCHOTHERAPY FOR SUBSTANCE ABUSE TREATMENT, SUPPORT (09/01/17) INDIV PSYCHOTHERAPY FOR SUBSTANCE ABUSE, PSYCHOEDUCATION (09/01/17) INDIVIDUAL PSYCHOTHERAPY, SUPPORTIVE (09/01/17) MEDICATION MANAGEMENT (09/01/17) PHARMACOTHERAPY FOR SUBSTANCE ABUSE, NICOTINE REPLACE (04/15/17) Family History: States: Unknown Family Hx - Social History Hx Tobacco Use: No Hx Alcohol Use: Yes (occasional) Hx Substance Use: Yes - Immunization History Hx Tetanus Toxoid Vaccination: No (not up to date) Hx Influenza Vaccination: Yes Hx Pneumococcal Vaccination: No Review Of Systems Except As Marked, All Systems Reviewed And Found Negative. Constitutional: Negative for: Fever, Chills Cardiovascular: Negative for: Chest Pain Respiratory: Negative for: Shortness of Breath Musculoskeletal: Positive for: Other (left ankle pain) Psych: Positive for: Suicidal ideation Physical Exam - Physical Exam Appears: Non-toxic, No Acute Distress Skin: Warm, Dry Head: Normacephalic Eye(s): bilateral: Normal Inspection Nose: Normal Oral Mucosa: Moist Neck: Normal ROM, Trachea Midline, Supple Chest: Symmetrical Cardiovascular: Rhythm Regular Respiratory: Normal Breath Sounds, No Rales, No Rhonchi, No Wheezing Gastrointestinal/Abdominal: Soft, No Tenderness Extremity: Normal ROM, Tenderness (left ankle), No Deformity (left ankle pain ), No Swelling (left ankle ) Pulses: Left Dorsalis Pedis: Normal, Right Dorsalis Pedis: Normal Neurological/Psych: Oriented x3, Normal Speech Gait: Steady ED Course And Treatment - Laboratory Results Result Diagrams: 09/22/18 02:43 09/21/18 22:24 O2 Sat by Pulse Oximetry: 99 (RA) Pulse Ox Interpretation: Normal - Radiology CXR: Interpreted by Me, Viewed By Me CXR Interpretation: Yes: No Acute Disease. No: Infiltrates Medical Decision Making Medical Decision Making: Plan - Bloodwork - UA - Observation Disposition Discussed With : Coby Ramos Doctor Will See Patient In The: Hospital Counseled Patient/Family Regarding: Diagnosis - Disposition Disposition: HOSPITALIZED Disposition Time: 03:27 Condition: STABLE Forms: [facility] (Swiss) - POA Present On Arrival: None - Clinical Impression Clinical Impression: Major depression, Opiate abuse, continuous, Cocaine abuse - Scribe Statement The provider has reviewed the documentation as recorded by the Scribe Nikki Sanchez All medical record entries made by the Scribe were at my direction and personally dictated by me. I have reviewed the chart and agree that the record accurately reflects my personal performance of the history, physical exam, medical decision making, and the department course for this patient. I have also personally directed, reviewed, and agree with the discharge instructions and disposition.
[2018-09-21 22:28] LABS: BASO # 0.1 K/uL (0.0-0.2); BASO % 0.5 % (0.0-2.0); EOS % 0.1 % (0.0-4.0); HEMOGLOBIN 11.7 g/dL (12.0-18.0); LYMPH # 2.1 K/uL (1.0-4.3); LYMPH % 10.5 % (20.0-40.0); MEAN CELL VOLUME 72.9 fL (80.0-94.0); MEAN CORPUSCULAR HEMOGLOBIN 23.6 pg (27.0-31.0); MEAN CORPUSCULAR HGB CONC 32.4 g/dL (33.0-37.0); MEAN PLATELET VOLUME 7.1 fL (7.2-11.7); MONO # 1.1 K/uL (0.0-0.8); MONO % 5.5 % (0.0-10.0); NEUT # 16.5 K/uL (1.8-7.0); NEUT % 83.4 % (50.0-75.0); RBC 4.95 Mil/uL (4.40-5.90); RED CELL DISTRIBUTION WIDTH 15.6 % (11.5-14.5); WHITE BLOOD COUNT 19.8 K/uL (4.8-10.8)
[2018-09-21 22:29] LABS: URINE BILIRUBIN NEGATIVE (NEGATIVE); URINE BLOOD NEGATIVE (NEGATIVE); URINE CLARITY Clear (Clear); URINE COLOR Yellow (YELLOW); URINE GLUCOSE (UA) NORMAL (Normal); URINE LEUKOCYTE ESTERASE NEG Leu/uL (Negative); URINE PROTEIN NEGATIVE (NEGATIVE); URINE UROBILINOGEN NORMAL mg/dL (0.2-1.0)
[2018-09-21 22:40] LABS: ALB/GLOB RATIO 1.1 (1.0-2.1); ALBUMIN 4.3 g/dL (3.5-5.0); ALT/SGPT 31 U/L (21-72); AST/SGOT 32 U/L (17-59); BLOOD UREA NITROGEN 17 mg/dL (9-20); CALCIUM 8.8 mg/dl (8.6-10.4); GFR NON-AFRICAN AMERICAN > 60
[2018-09-21 22:44] LABS: BARBITURATES, UR NEGATIVE (NEGATIVE); BENZODIAZEPINES, UR NEGATIVE (NEGATIVE); PHENCYCLIDINE, UR NEGATIVE (NEGATIVE)
[2018-09-21 22:45] LABS: OPIATES, UR POSITIVE (NEGATIVE)
[2018-09-22 02:47] LABS: HEMOGLOBIN 11.1 g/dL (12.0-18.0); MEAN CORPUSCULAR HGB CONC 31.9 g/dL (33.0-37.0); MEAN PLATELET VOLUME 7.4 fL (7.2-11.7); RBC 4.63 Mil/uL (4.40-5.90); RED CELL DISTRIBUTION WIDTH 15.4 % (11.5-14.5); WHITE BLOOD COUNT 16.7 K/uL (4.8-10.8)
--- NOTE | 2018-09-22 05:56 | PCM.BM ---
<Ruben Sanots Chang - Last Filed: 09/22/18 05:53> Treatment Plan Problems - Problems identified on initial assessmt Suicidal Ideation Date Initiated: 09/22/18 Time Initiated: 05:30 Assessment reference: NA Status: Monitor Self Harm Date Initiated: 09/22/18 Time Initiated: 05:30 Assessment reference: NA Status: Monitor Ineffective Coping Date Initiated: 09/22/18 Time Initiated: 05:30 Assessment reference: NA Status: Active Treatment assets and liabiliti Patient Assests: cooperative, ADL independent, negotiates basic needs Patient Liabilities: poor support system, substance abuse (Marijuana, Cocaine, Heroin) - Milieu Protocol Maintain good personal hygiene: daily Encourage regular showers, daily Remind patient to perform daily oral care, every shift Assist patient to perform ADL's Conduct patient checks and document Observation sheet: Q15 minutes Maintain personal safety: every shift Educate patient to report safety concerns to staff, every shift Monitor environment for contraband/sharps Medication safety: Monitor for expected outcome, potential side effects: every shift, Assess barriers to learning: every shift, Assess readiness for medication education: every shift <Carlo Banks - Last Filed: 09/23/18 11:17> - Diagnosis (1) Bipolar 1 disorder, mixed, severe Status: Acute Interventions: 09/23/18 11:18 * Assess/adjust medications daily and /or as needed * See patient on an individual basis 7x/week to assess level of manic behaviors and stability * Discuss risks, benefits, side effects and alternatives of medications * (2) Opiate abuse, continuous Status: Acute Interventions: 09/23/18 11:18 * Assess 7x/week regarding severity of withdrawal * Educate regarding risks, benefits, side effects and alternatives of medications * Use Motivational Interviewing for abstinence * Use CBT for relapse prevention * Medication management for withdrawal symptoms * Encourage medication assisted treatment * <Gisele Linares - Last Filed: 09/23/18 12:07> Family Contact Family involvement: Famliy/SO not involved - Goals for Treatment Patient goals for treatment: "I don't know." Discharge/Continuing Care - Education Needs Education Needs: Patient Medication, Patient Coping Skills, Patient Placement options, Patient Community resources - Discharge Discharge Criteria: Tolerates medication w/o severe side effects, No longer exhibiting s/s of withdrawal Discharge to:: Substance Abuse Rehab - Treatment Team Participation Discussed with Family/SO: No Was Patient/Family/SO present at Treatment Team Meeting: Yes
--- NOTE | 2018-09-22 10:06 | RAD ---
Date of service: 09/22/2018 HISTORY: leucocytosis COMPARISON: 04/15/2017 TECHNIQUE: Chest PA and lateral FINDINGS: LUNGS: No active pulmonary disease. PLEURA: No significant pleural effusion identified. No pneumothorax apparent. CARDIOVASCULAR: No aortic atherosclerotic calcification present. Normal cardiac size. No pulmonary vascular congestion. OSSEOUS STRUCTURES: No significant abnormalities. VISUALIZED UPPER ABDOMEN: Normal. OTHER FINDINGS: None. IMPRESSION: No active disease. No interval pathology noted.
--- NOTE | 2018-09-22 10:34 | PCM.PSYCH ---
Initial Psychiatric Evaluation - Initial Psychiatric Evaluation Type of Admission: Voluntary Legal Status: Capacity Chief Complaint (in patient's own words): I was feeling depressed and suicidal.' History of Present Illness and Precipitating Events: Patient is a 38 years old single male, currently unemployed, came to the hospital depressed mood and auditory hallucinations command type to kill herself. Patient history of multiple inpatient psychiatric hospitalizations. He was last discharged from [facility] 1 year ago. As per the patient soon after discharge from the hospital, he did not follow-up with outpatient doctor. As he ran out of his medication and relapsed on heroin, cocaine and alcohol. He reports of injecting 10-20 bags of heroin and reports of abusing 6 packs beers. Yesterday he abused more than 8 bags of heroin along with some cocaine and few beers, when he started hearing voices to kill himself, he became depressed and came to the hospital to get help. He appears somewhat disorganized and internally preoccupied. He reports of hearing voices and reports of paranoia. He appears somewhat delusional and paranoid. He reports depressed mood and at times feelings of hopelessness and helplessness. He also reports irritability and agitation. He reports withdrawal symptoms from heroin including nausea, vomiting, cramps, joint pains, headaches, anxiety and sweating. He also reports at times irritability and agitation. Past medical history None reported Current Medications: Active Medications Generic Name Dose Route Start Last Admin Trade Name Freq PRN Reason Stop Dose Admin Nicotine 1 patch 09/22/18 10:00 09/22/18 10:07 Nicoderm Cq TD 1 patch DAILY FESTUS Administration Pneumococcal Polyvalent Vaccine 0.5 ml 09/24/18 10:00 Pneumovax 23 Vaccine IM 09/24/18 10:01 .ONCE ONE Past Psychiatric History - Past Psychiatric History Previous Treatment History: Inpatient Pertinent Medical Hx (Current Medical&Sleep Prob, Allergies): Allergies Allergy/AdvReac Type Severity Reaction Status Date / Time No Known Allergies Allergy Verified 05/18/18 12:37 QUEtiapine [SEROquel] 400 mg PO HS #30 tab 09/06/17 traZODone [Desyrel] 50 mg PO HS PRN #30 tab 09/06/17 Folic Acid 1 mg PO DAILY #30 tab 05/18/18 [place] Carbonate [[place] Carbonate 300MG] 300 mg PO BID #60 cap 05/18/18 Multivitamin [Multivitamins] 1 tab PO DAILY #30 capsule 05/18/18 OLANZapine [ZyPREXA] 10 mg PO HS #30 tab 05/18/18 Thiamine HCl 100 mg PO DAILY #30 tablet 05/18/18 Review of Systems - Review of Systems All systems: reviewed and no additional remarkable complaints except - Psychiatric Psychiatric: Anxiety, Irritability, Suicidal Ideation Mental Status Examination - Personal Presentation Personal Presentation: Looks stated age - Affect Affect: Constricted - Reliability in Providing Information Reliability in Providing Information: Fair - Speech Speech: Organized - Mood Mood: Depressed, Anxious - Formal Thought Process Formal Thought Process: Hallucinations - Obsessions/Compulsions Obsessions: No Compulsions: No - Cognitive Functions Orientation: Person, Place, Situation, Time Sensorium: Alert Attention/Concentration: Attentive Abstract Thinking: [place] Estimate of Intelligence: Below average Judgement: Imparied, as evidence by: Poor judgement, Imparied, as evidence by: Lack of insight into illness - Risk Risk: Suicidal, Withdrawal, Diminished functioning - Limitations Limitations: Living alone DSM 5 DX - DSM 5 DSM 5 Diagnosis: Major depressive disorder recurrent severe without psychotic features Opioid use disorder severe Opioid withdrawal Cocaine use disorder severe - Recommended/Plan of Treatment Treatment Recommendations and Plan of Treatment: Bipolar disorder mixed severe with psychotic features Opioid use disorder severe Opioid withdrawal Cocaine use disorder severe -CBT -Psychoeducation -Supportive therapy and group therapy -Methadone taper for opioid withdrawal -[place] for mood -Olanzapine for psychosis -Trazodone for sleep -Hydroxyzine for anxiety -Withdrawal medications for heroin including clonidine/Zofran/Imodium - Smoking Cessation Smoking Cessation Initiated: No
--- NOTE | 2018-09-22 16:35 | RAD ---
PROCEDURE: Left Ankle Radiographs. HISTORY: Swollen left ankle, pain in left ankle COMPARISON: None available. FINDINGS: BONES: No acute displaced fracture. JOINTS: No dislocation. SOFT TISSUES: Soft tissue swelling. No evidence of radiopaque foreign body. OTHER FINDINGS: None. IMPRESSION: Soft tissue swelling. No acute displaced fracture or dislocation identified. If symptoms persist or if there is clinical concern, x-ray follow-up in 7-10 days should be considered.
[2018-09-22] MEDS: Silver Sulfadiazine 1% Cream (20 gm) TOP SCH (18:42)
[2018-09-23] MEDS: Silver Sulfadiazine 1% Cream (20 gm) TOP SCH ×2 (10:12→17:50)
--- NOTE | 2018-09-23 11:19 | PCM.PYCHPN ---
Psychiatric Progress Note - Psychiatric Progress Note Patient seen today, length of contact: 15 min Patient Chief Complaint: I am still feeling depressed and suicidal Problems Identified/Issues Discussed: Patient seen and evaluated, chart reviewed discussed with staff. He still reports depressed mood and at times feelings of hopelessness and helplessness. Reports of hearing voices and paranoia. He reports withdrawal symptoms including nausea, cramps, joint pain and sweating. He is taking medication but denies any side effects. Supportive therapy was given Medication Change: Yes Medical Record Reviewed: Yes Mental Status Examination - Cognitive Function Orientation: Person, Place, Situation, Time Memory: Intact Attention: WNL Concentration: Poor Association: WNL Fund of Knowledge: Poor - Mood Mood: Depressed, Anxious - Affect Affect: Constricted - Speech Speech: Soft - Formal Thought Process Formal Thought Process: Hallucinations - Suicidal Ideation Suicidal Ideation: No - Homicidal Ideation Homicidal Ideation: No Goal/Treatment Plan - Goal/Treatment Plan Need for Continued Stay: Remain at risks for inpatient hospitalization Progress Toward Problem(s) and Goals/Treatment Plan: Bipolar disorder mixed severe with psychotic features Opioid use disorder severe Opioid withdrawal Cocaine use disorder severe -CBT -Psychoeducation -Supportive therapy and group therapy -Methadone taper for opioid withdrawal -[place] for mood -Olanzapine for psychosis -Trazodone for sleep -Hydroxyzine for anxiety -Withdrawal medications for heroin including clonidine/Zofran/Imodium
[2018-09-23] MEDS: Lithium Carbonate 150 MG CAP PO SCH (17:50)
[2018-09-24] MEDS: Lithium Carbonate 150 MG CAP PO SCH ×2 (09:57→18:33)
[2018-09-24] MEDS: Silver Sulfadiazine 1% Cream (20 gm) TOP SCH ×2 (09:58→18:45)
[2018-09-24] MEDS ORDERED: Pneumococcal 23-Valent Vaccine IM ONE (10:00)
--- NOTE | 2018-09-24 23:00 | PCM.PYCHPN ---
Psychiatric Progress Note - Psychiatric Progress Note Patient seen today, length of contact: 15 min Patient Chief Complaint: I am feeling anxious. Can I get Atarax. Problems Identified/Issues Discussed: Patient seen, chart reviewed, case discussed with the staff. Issues related to illness and treatment were discussed with the patient and staff. Reported compliant with treatment with no adverse effects. Tolerating treatment very well. Mood reported as anxious. Affect appropriate. Patient reported feeling little better as patient still has some withdrawal symptoms including anxiety, headache and body aches. Initially staff reported that patient was irritable. Aftercare discussed with the patient. Patient denied any delusions, auditory or visual hallucinations, no suicidal ideations or homicidal ideations at the time of evaluation Medical Problems: None reported Diagnostic Results: Reviewed DSM 5 Symptoms Update: Some improvement with treatment Medication Change: No Medical Record Reviewed: Yes Mental Status Examination - Cognitive Function Orientation: Person, Place, Situation, Time Memory: Intact Attention: WNL Concentration: WNL Association: WNL Fund of Knowledge: WN Decription of patient's judgement and insights: Fair - Mood Mood: Anxious - Affect Affect: Other (Appropriate) - Speech Speech: Soft - Formal Thought Process Formal Thought Process: No Impairment Psychotic Thoughts and Behaviors: None - Suicidal Ideation Suicidal Ideation: No - Homicidal Ideation Homicidal Ideation: No Goal/Treatment Plan - Goal/Treatment Plan Need for Continued Stay: Remain at risks for inpatient hospitalization, Discharge may exacerbated symptoms, Severe functional impairment Progress Toward Problem(s) and Goals/Treatment Plan: Some improvement with treatment. Patient education. Supportive therapy. CBT for relapse prevention. NC for the next Continue treatment as before. Estimated Date of D/C: 09/27/18 - Smoking Cessation Smoking Cessation Initiated: Yes
[2018-09-25] MEDS: Lithium Carbonate 150 MG CAP PO SCH ×2 (09:41→17:06)
[2018-09-25] MEDS: Silver Sulfadiazine 1% Cream (20 gm) TOP SCH ×2 (09:47→17:08)
[2018-09-26 06:23] VITALS: O2SAT 97
[2018-09-26] MEDS: Lithium Carbonate 150 MG CAP PO SCH ×2 (10:11→17:40)
[2018-09-26] MEDS: Silver Sulfadiazine 1% Cream (20 gm) TOP SCH ×2 (10:13→17:41)
[2018-09-26] MEDS: Aluminum Hydroxide/Magnesium Hydroxide Susp (30 mL) PO PRN (13:30)
[2018-09-27] MEDS: Lithium Carbonate 150 MG CAP PO SCH ×2 (09:36→17:12)
[2018-09-27] MEDS: Silver Sulfadiazine 1% Cream (20 gm) TOP SCH ×2 (09:36→17:12)
[2018-09-27] MEDS: Aluminum Hydroxide/Magnesium Hydroxide Susp (30 mL) PO PRN (17:12)
--- NOTE | 2018-09-28 00:01 | PCM.PYCHPN ---
Psychiatric Progress Note - Psychiatric Progress Note Patient seen today, length of contact: 15 min Patient Chief Complaint: I am feeling little better Problems Identified/Issues Discussed: Patient seen and evaluated, chart reviewed discussed with staff. He reports improvement in his mood and reports some improvement in the feelings of hopelessness and helplessness. Reports improvement in the voices and paranoia. He reports withdrawal symptoms including nausea, cramps, joint pain and sweating. He is taking medication but denies any side effects. Symptoms are improving gradually but he needs to stay longer for further stabilization Supportive therapy was given Medication Change: Yes Medical Record Reviewed: Yes Mental Status Examination - Cognitive Function Orientation: Person, Place, Situation, Time Memory: Intact Attention: WNL Concentration: WNL Association: WNL Fund of Knowledge: WNL - Mood Mood: Anxious - Affect Affect: Other (Appropriate) - Speech Speech: Soft - Formal Thought Process Formal Thought Process: No Impairment - Suicidal Ideation Suicidal Ideation: No - Homicidal Ideation Homicidal Ideation: No Goal/Treatment Plan - Goal/Treatment Plan Need for Continued Stay: Remain at risks for inpatient hospitalization, Discharge may exacerbated symptoms, Severe functional impairment Progress Toward Problem(s) and Goals/Treatment Plan: Bipolar disorder mixed severe with psychotic features Opioid use disorder severe Opioid withdrawal Cocaine use disorder severe -CBT -Psychoeducation -Supportive therapy and group therapy -Methadone taper for opioid withdrawal -[place] for mood -Olanzapine for psychosis -Trazodone for sleep -Hydroxyzine for anxiety -Withdrawal medications for heroin including clonidine/Zofran/Imodium Estimated Date of D/C: 09/27/18
--- NOTE | 2018-09-28 00:02 | PCM.PYCHPN ---
Psychiatric Progress Note - Psychiatric Progress Note Patient seen today, length of contact: 15 min Patient Chief Complaint: I am still feeling depressed and suicidal Problems Identified/Issues Discussed: Patient seen and evaluated, chart reviewed discussed with staff. He reports improvement in his mood and reports some improvement in the feelings of hopelessness and helplessness. Reports improvement in the voices and paranoia. He reports withdrawal symptoms including nausea, cramps, joint pain and sweating. He is taking medication but denies any side effects. Symptoms are improving gradually but he needs to stay longer for further stabilization Supportive therapy was given Medication Change: No Medical Record Reviewed: Yes Mental Status Examination - Cognitive Function Orientation: Person, Place, Situation, Time Memory: Intact Attention: WNL Concentration: WNL Association: WNL Fund of Knowledge: WNL - Mood Mood: Anxious - Affect Affect: Other (Appropriate) - Speech Speech: Soft - Formal Thought Process Formal Thought Process: No Impairment - Suicidal Ideation Suicidal Ideation: No - Homicidal Ideation Homicidal Ideation: No Goal/Treatment Plan - Goal/Treatment Plan Need for Continued Stay: Remain at risks for inpatient hospitalization, Discharge may exacerbated symptoms, Severe functional impairment Progress Toward Problem(s) and Goals/Treatment Plan: Bipolar disorder mixed severe with psychotic features Opioid use disorder severe Opioid withdrawal Cocaine use disorder severe -CBT -Psychoeducation -Supportive therapy and group therapy -Methadone taper for opioid withdrawal -[place] for mood -Olanzapine for psychosis -Trazodone for sleep -Hydroxyzine for anxiety -Withdrawal medications for heroin including clonidine/Zofran/Imodium Estimated Date of D/C: 09/27/18
--- NOTE | 2018-09-28 09:59 | PCM.PYCHDC ---
Mental Status Examination - Mental Status Examination Orientation: Person, Place, Situation, Time Memory: Intact Mood: Neutral Affect: Constricted Speech: Soft Attention: WNL Concentration: WNL Association: WNL Fund of Knowledge: WNL Formal Thought Process: No Impairment Description of patient's judgement and insight: good, fair Psychotic Thoughts and Behaviors: denies any AVH Suicidal Ideation: No Current Homicidal Ideation?: No Discharge Summary - Discharge Note Reason for Hospitalization: Patient is a 38 years old single male, currently unemployed, came to the hospital depressed mood and auditory hallucinations command type to kill herself. Patient history of multiple inpatient psychiatric hospitalizations. He was last discharged from [facility] 1 year ago. As per the patient soon after discharge from the hospital, he did not follow-up with outpatient doctor. As he ran out of his medication and relapsed on heroin, cocaine and alcohol. He reports of injecting 10-20 bags of heroin and reports of abusing 6 packs beers. Yesterday he abused more than 8 bags of heroin along with some cocaine and few beers, when he started hearing voices to kill himself, he became depressed and came to the hospital to get help. He appears somewhat disorganized and internally preoccupied. He reports of hearing voices and reports of paranoia. He appears somewhat delusional and paranoid. He reports depressed mood and at times feelings of hopelessness and helplessness. He also reports irritability and agitation. He reports withdrawal symptoms from heroin including nausea, vomiting, cramps, joint pains, headaches, anxiety and sweating. He also reports at times irritability and agitation. Consultations:: List each consultation separately and include: 1. Reason for request. 2. Findings. 3. Follow-up Summary of Hospital Course include:: 1. Description of specific treatment plan utilized for patients during their course of treatmen. 2. Summarize the time- course for resolution of acute symptoms and/or regressed behaviors. 3. Describe issues identified and worked on during hospitalization. 4. Describe medication utilized. 5. Describe medical problems identified and treated. 6. Reassessment of suicide risk Summary of Hospital Course: During the course of his stay, patient (pt) started progressively improving and no longer remained irritable, depressed, paranoid and suicidal. His mood and anxiety were improved and he started attending groups and meetings and started socializing. Patient denied any feelings of hopelessness, helplessness, and worthlessness, denied any problem with the sleep or appetite, denied suicidal ideation or homicidal ideation. Pt denied any auditory or visual hallucinations. He denied any withdrawal symptoms. Pt was treated with medications along with supportive therapy, milieu therapy and group therapy. Some changes were made in his current medications and patient was discharged on following medications. He tolerated these medications very well and denied any side effects. - Diagnosis (1) Bipolar 1 disorder, mixed, severe Status: Acute (2) Opiate abuse, continuous Status: Acute - Final Diagnosis (DSM 5) Condition upon Discharge: STABLE DSM 5: Bipolar disorder mixed severe with psychotic features Opioid use disorder severe Opioid withdrawal Cocaine use disorder severe Disposition: HOME/ ROUTINE Follow-up Treatment Plan: Followup: Pt is to go to residential rehab at [facility] in [place], [place]. Education: Pt was educated and counseled about the risks and benefits of taking and not taking medications. Pt was educated and counseled about the risks of drinking and abusing drugs. Pt was educated and counseled to go to the ER or call 911 if pt develop suicidal ideation or homicidal ideation, worsening of symptoms or severe side effects of the meds. Prescriptions/Medication Reconciliation: [place] Carbonate [[place] Carbonate 150MG] 150 mg PO BID #60 cap [place] Carbonate [[place] Carbonate 300MG] 300 mg PO BID #60 cap OLANZapine [Zyprexa] 10 mg PO HS #30 tab traZODone [Desyrel] 50 mg PO HS PRN #30 tab PRN Reason: Insomnia - Smoking Cessation Smoking Cessation Medication prescribed: No - Antipsychotic Medications Pt discharged on 2 or more routine antipsychotic medications: No
[2018-09-28] MEDS: Lithium Carbonate 150 MG CAP PO SCH (10:10)
[2018-09-28] MEDS: Silver Sulfadiazine 1% Cream (20 gm) TOP SCH (10:12)
[2018-09-28 10:23] VITALS: BP 123/68; PULSE 75; RESP 20; TEMP 97.6
== END 2018-09-28 10:40 | disposition home or self-care (01) | DRG 753 ==
LOC: C.ER 20:58 → C.9E 09-22 03:29 → C.5E 09-22 05:06
PROVIDERS: ADMIT Psychiatry & Neurology Psychiatry; ATTEND Psychiatry & Neurology Psychiatry
PROC: GZHZZZZ Group Psychotherapy (ICD-10-PCS; principal; 2018-09-22)
PROC: GZ56ZZZ Individual Psychotherapy, Supportive (ICD-10-PCS; 2018-09-22)
DX: F31.64 Bipolar disorder, current episode mixed, severe, with psychotic features (principal); F11.23 Opioid dependence with withdrawal; F41.9 Anxiety disorder, unspecified; F14.10 Cocaine abuse, uncomplicated; F17.210 Nicotine dependence, cigarettes, uncomplicated